=== PATIENT | male | born 1930 | race Caucasian/White ===

== ENCOUNTER 2017-04-11 16:36 | Inpatient (IN) | payer MEDICARE, OTHER ==
[2017-04-11 17:05] LABS: Glucose,Whole Blood 90 mg/dL (75-99)
--- NOTE | 2017-04-11 17:08 | ED ---
Fall HPI <Murray Sands - Last Filed: 04/11/17 18:56> - General Source: patient, EMS, RN notes reviewed Mode of arrival: EMS <Yojana Lemos - Last Filed: 04/11/17 19:40> - General Chief Complaint: Fall Stated Complaint: Fall Time Seen by Provider: 04/11/17 16:45 - History of Present Illness Initial Comments: Patient is a 87-year-old male presents to the emergency room for evaluation of fall injury. Patient's daughter is present with patient. Patient's daughter states that patient was using his walker to walk in the backyard on the cement and she turned away for one second and patient was on his back on the ground. Patient's daughter states that after the incident initially happened, he was alert and said he felt fine. Patient's daughter states that her and her moved patient onto a wheelchair and brought patient in bed. Patient's daughter states that 2 hours later patient became very altered and was not making sense while talking. Patient then began complaining of increasing pain in his left hip. Patient's daughter states that they decided to call EMS. Patient's daughter states that patient is usually not altered. Patient's daughter states that patient is on Plavix due to a stroke about 3 years ago. ( Yojana Lemos) - Related Data Home Medications Medication Instructions Recorded Confirmed ALPRAZolam [Xanax] 0.5 mg PO BID PRN 05/13/15 04/11/17 Clopidogrel [Plavix] 75 mg PO DAILY 05/13/15 04/11/17 DULoxetine HCL [Cymbalta] 60 mg PO DAILY 05/13/15 04/11/17 Hydrocodone/Acetaminophen [[place] 1 tab PO QID PRN 05/13/15 04/11/17 10-325] Montelukast [Singulair] 10 mg PO HS 05/13/15 04/11/17 Albuterol Nebulized [Ventolin 2.5 mg INHALATION RT-QID PRN 09/05/16 04/11/17 Nebulized] Oxybutynin Chloride [Ditropan XL] 5 mg PO HS 09/05/16 04/11/17 Ipratropium Nebulized [Atrovent 0.5 mg INHALATION RT-QID PRN 04/11/17 04/11/17 Nebulized] Levothyroxine Sodium [Synthroid] 100 mcg PO DAILY 04/11/17 04/11/17 Lisinopril 40 mg PO DAILY 04/11/17 04/11/17 predniSONE 10 mg PO DAILY 04/11/17 04/11/17 Previous Rx's Medication Instructions Recorded amLODIPine [Norvasc] 10 mg PO DAILY #30 tab 09/14/16 Allergies Allergy/AdvReac Type Severity Reaction Status Date / Time No Known Allergies Allergy Verified 04/11/17 17:30 Review of Systems ROS Other: All systems not noted in ROS Statement are negative. <Murray Sands - Last Filed: 04/11/17 18:56> ROS Other: All systems not noted in ROS Statement are negative. <Yojana Lemos - Last Filed: 04/11/17 19:40> ROS Statement: Those systems with pertinent positive or pertinent negative responses have been documented in the HPI. Past Medical History Past Medical History: Cancer, CVA/TIA, Hypertension, Myocardial Infarction ([place]) , Thyroid Disorder Additional Past Medical History / Comment(s): Gout; Skin Ca, uti-ecoli, bradycardia, had pne vaccine after age 63-not sure of date Last Myocardial Infarction Date:: Unknown History of Any Multi-Drug Resistant Organisms: None Reported Past Surgical History: Heart Catheterization, Orthopedic Surgery Additional Past Surgical History / Comment(s): Removal of skin ca lesions Past Anesthesia/Blood Transfusion Reactions: No Reported Reaction Past Psychological History: No Psychological Hx Reported Smoking Status: Former smoker Past Alcohol Use History: None Reported, Rare Past Drug Use History: None Reported - Past Family History Mother Family Medical History: CVA/TIA Additional Family Medical History / Comment(s): AGE 49 Father Family Medical History: No Reported History Additional Family Medical History / Comment(s): " FROM OLD AGE" <Yojana Lemos - Last Filed: 04/11/17 19:40> General Exam <Murray Sands - Last Filed: 04/11/17 18:56> Limitations: no limitations, altered mental status General appearance: alert Expanded Head exam: Present: abrasion (left pentecostal) Eye exam: Present: normal appearance, PERRL, EOMI Pupils: Present: normal accommodation Respiratory exam: Absent: respiratory distress Left Hip exam: Present: tenderness, swelling, ecchymosis (lateral hip), internal rotation, shortening. Absent: normal inspection, full ROM Neurovascular tendon exam: Present: no vascular compromise. Absent: pulse deficit (2+ dorsal pedal and posterior tibial pulses), abnormal cap refill ( capillary refill less than 2 seconds) Gait: not tested/not observed, unable to bear weight Back exam: Present: normal inspection Neurological exam: Present: alert Expanded Patient oriented to: Present: person Cranial nerves: EOM's Intact: Normal, Facial Sensation: Normal Sensory exam: Upper Extremity Light Touch: Normal, Lower Extremity Light Touch: Normal Eye Response: (3) open to voice Motor Response: (6) obeys commands Verbal Response: (4) confused conversation Psychiatric exam: Present: normal affect Skin exam: Present: warm, other (skin avulsion over left upper arm and left elbow) <Yojana Lemos - Last Filed: 04/11/17 19:40> - General Exam Comments Initial Comments: laying in exam room, c-collar on (Yojana Lemos) Medical Decision Making - Lab Data Result diagrams: 04/11/17 17:00 04/11/17 17:00 <Murray Sands - Last Filed: 04/11/17 18:56> - Lab Data Result diagrams: 04/11/17 17:00 04/11/17 17:00 - Radiology Data Radiology results: report reviewed, image reviewed <Yojana Lemos - Last Filed: 04/11/17 19:40> - Medical Decision Making Medical decision-making. The patient stumbled from his walker. Injuring his left hip with a femoral neck fracture left hip. The patient is on Plavix because of a previous CVA. Labs are done. The case discussed with Dr. Dwyer on -call orthopedic surgeon. Patient be admitted to Dr. Lawrence with aura to consult. Surgery will be for several days. Patient needs medical clearance he is currently on blood thinner. Dr. Sands (Murray Sands) - Lab Data Lab Results 04/11/17 04/11/17 04/11/17 Range/Units 17:00 17:00 17:00 WBC 17.8 H (3.8-10.6) k/uL RBC 5.18 (4.30-5.90) m/uL Hgb 16.5 (13.0-17.5) gm/dL Hct 52.0 (39.0-53.0) % MCV 100.4 H (80.0-100.0) fL MCH 31.9 (25.0-35.0) pg MCHC 31.8 (31.0-37.0) g/dL RDW 15.0 (11.5-15.5) % Plt Count 192 (150-450) k/uL Neutrophils % 83 % Lymphocytes % 10 % Monocytes % 4 % Eosinophils % 1 % Basophils % 1 % Neutrophils # 14.8 H (1.3-7.7) k/uL Lymphocytes # 1.8 (1.0-4.8) k/uL Monocytes # 0.8 (0-1.0) k/uL Eosinophils # 0.2 (0-0.7) k/uL Basophils # 0.1 (0-0.2) k/uL Macrocytosis Slight PT 10.3 (9.0-12.0) sec INR 1.0 (<1.1) Sodium 135 L (137-145) mmol/L Potassium 4.3 (3.5-5.1) mmol/L Chloride 104 (98-107) mmol/L Carbon Dioxide 21 L (22-30) mmol/L Anion Gap 10 mmol/L BUN 43 H (9-20) mg/dL Creatinine 1.64 H (0.66-1.25) mg/dL Est GFR (MDRD) Af Amer 48 (>60 ml/min/1.73 sqM) Est GFR (MDRD) Non-Af 40 (>60 ml/min/1.73 sqM) Glucose 111 H (74-99) mg/dL POC Glucose (mg/dL) (75-99) mg/dL POC Glu Metal [employer]rication Supervisor ID Calcium 9.3 (8.4-10.2) mg/dL Total Bilirubin 1.9 H (0.2-1.3) mg/dL AST 43 (17-59) U/L ALT 53 (21-72) U/L Alkaline Phosphatase 68 (38-126) U/L Ammonia (<30) umol/L Total Protein 5.9 L (6.3-8.2) g/dL Albumin 3.8 (3.5-5.0) g/dL 04/11/17 04/11/17 Range/Units 17:04 18:01 WBC (3.8-10.6) k/uL RBC (4.30-5.90) m/uL Hgb (13.0-17.5) gm/dL Hct (39.0-53.0) % MCV (80.0-100.0) fL MCH (25.0-35.0) pg MCHC (31.0-37.0) g/dL RDW (11.5-15.5) % Plt Count (150-450) k/uL Neutrophils % % Lymphocytes % % Monocytes % % Eosinophils % % Basophils % % Neutrophils # (1.3-7.7) k/uL Lymphocytes # (1.0-4.8) k/uL Monocytes # (0-1.0) k/uL Eosinophils # (0-0.7) k/uL Basophils # (0-0.2) k/uL Macrocytosis PT (9.0-12.0) sec INR (<1.1) Sodium (137-145) mmol/L Potassium (3.5-5.1) mmol/L Chloride (98-107) mmol/L Carbon Dioxide (22-30) mmol/L Anion Gap mmol/L BUN (9-20) mg/dL Creatinine (0.66-1.25) mg/dL Est GFR (MDRD) Af Amer (>60 ml/min/1.73 sqM) Est GFR (MDRD) Non-Af (>60 ml/min/1.73 sqM) Glucose (74-99) mg/dL POC Glucose (mg/dL) 90 (75-99) mg/dL POC Glu Metal Fabrication Supervisor ID Donna Thompson Calcium (8.4-10.2) mg/dL Total Bilirubin (0.2-1.3) mg/dL AST (17-59) U/L ALT (21-72) U/L Alkaline Phosphatase (38-126) U/L Ammonia <9 (<30) umol/L Total Protein (6.3-8.2) g/dL Albumin (3.5-5.0) g/dL 04/11/17 19:06 sinus rhythm with premature supraventricular complexes, ventricular rate 98 bpm , WA interval 196 ms, QRS duration 64 ms, QT/QTC 332/423 ms (Canelo,Yojana L) Disposition <Murray Sands - Last Filed: 04/11/17 18:56> Decision Date: 04/11/17 <Yojana Lemos - Last Filed: 04/11/17 19:40> Clinical Impression: Left displaced femoral neck fracture, Fall, Closed head injury Disposition: ADMITTED IP TO THIS [facility] Condition: Stable Referrals: Prakash Lawrence MD [Primary Care Provider] - 1-2 days
[2017-04-11] MEDS ORDERED: MORPHINE SULFATE 2 MG/ML SYRINGE IVP ONE (17:17)
[2017-04-11 17:19] LABS: Basophils # (A) 0.1 k/uL (0-0.2); Basophils % (A) 1 %; CH 32.9; CHCM 32.9; Eosinophils # (A) 0.2 k/uL (0-0.7); Eosinophils % (A) 1 %; HDW 2.33; HGB 16.5 gm/dL (13.0-17.5); Luc # (Auto) 0.16; Luc % (Auto) 1; Lymphocytes # (A) 1.8 k/uL (1.0-4.8); Lymphocytes % (A) 10 %; MCH 31.9 pg (25.0-35.0); MCHC 31.8 g/dL (31.0-37.0); MCV 100.4 fL (80.0-100.0); Macrocytosis Slight; Mean Platelet Volume 7.6; Monocytes # (A) 0.8 k/uL (0-1.0); Monocytes % (A) 4 %; Neutrophils # (A) 14.8 k/uL (1.3-7.7); Neutrophils % (A) 83 %; RBC 5.18 m/uL (4.30-5.90); WBC 17.8 k/uL (3.8-10.6); WBC (Perox) 17.25
[2017-04-11 17:25] LABS: Prothrombin Time 10.3 sec (9.0-12.0)
[2017-04-11 17:28] LABS: Calcium 9.3 mg/dL (8.4-10.2); Potassium 4.3 mmol/L (3.5-5.1); Total Bilirubin 1.9 mg/dL (0.2-1.3); Total Protein 5.9 g/dL (6.3-8.2)
--- NOTE | 2017-04-11 17:43 | CT ---
EXAMINATION TYPE: CT brain diaz moon con DATE OF EXAM: 04/11/2017 COMPARISON: May 13, 2015 HISTORY: Fall injury today. CT DLP: [address] of the brain was performed. The ventricles, basal cisterns and sulci overlying the cerebral convexities demonstrate moderate enla rgement. There is no evidence for intracranial hemorrhage or sulcal effacement. There is decreased attenuatio n about the periventricular white matter and deep white matter of both cerebral hemispheres, compatib le with chronic small vessel ischemia. No mass effects are seen. If symptoms persist consider MRI. Osseous calvarium is intact. IMPRESSION: 1. Age related atrophic and chronic small vessel ischemic change without acute intracranial process seen at this time. CT Cervical Spine: Unenhanced CT of the cervical spine was performed with bone and soft tissue window settings submitted . Coronal and sagittal reconstruction is obtained. There is normal alignment and prevertebral soft tissues. No evidence for acute cervical fracture . S evere Scattered degenerative disc disease and spondylosis. Reticular convex to the left. Biapical sca rring. IMPRESSION: 1. No evidence for acute fracture or subluxation of the cervical spine.
--- NOTE | 2017-04-11 18:29 | XR ---
EXAMINATION TYPE: XR Hip LT and AP Pelvis DATE OF EXAM: 04/11/2017 CLINICAL HISTORY: pain TECHNIQUE: AP and frogleg views of the left hip are obtained. Single view of the pelvis is also subm itted. COMPARISON: None. FINDINGS: There is a left femoral neck fracture with proximal migration of the distal fracture compon ent. No additional fracture seen. The joint space appears within normal limits. The overlying soft tissue appears unremarkable. IMPRESSION: 1. Left femoral neck fracture.
--- NOTE | 2017-04-11 18:30 | XR ---
EXAMINATION TYPE: XR chest 1V DATE OF EXAM: 04/11/2017 HISTORY: Shortness of breath. COMPARISON: September 13, 2016 TECHNIQUE: Single view of the chest is submitted. FINDINGS: Demonstrated are scattered senescent parenchymal change. There is no evidence for focal infiltrate. The heart is stable. Hilar and mediastinal structures are within normal limits. Degenerative changes are seen of the dorsal spine. IMPRESSION: 1. Chronic changes without evidence for acute pulmonary disease.
[2017-04-11] MEDS ORDERED: SODIUM CHLORIDE 0.9% 1,000 ML IV ONE (18:39)
[2017-04-11] MEDS ORDERED: ONDANSETRON 4 MG/2 ML VIAL IVP PRN (18:59)
[2017-04-11] MEDS ORDERED: NALOXONE 0.4 MG/ML 1 ML VIAL IV PRN (18:59)
[2017-04-11] MEDS ORDERED: HYDROcodone/APAP 10-325MG 1 EACH TAB PO PRN (19:55)
[2017-04-11] MEDS ORDERED: ALBUTEROL NEBULIZED 2.5 MG/3 ML INHALATION PRN (19:55)
[2017-04-11] MEDS ORDERED: IPRATROPIUM 0.5 MG/2.5 ML NEBU INHALATION PRN (19:55)
[2017-04-11] MEDS ORDERED: ALPRAZolam 0.5 MG TAB PO PRN (19:55)
[2017-04-11] MEDS ORDERED: amLODIPine 5 MG TAB PO STA (20:05)
[2017-04-11] MEDS: MORPHINE SULFATE 4 MG/ML SYRINGE IV PRN ×2 (20:06→23:54)
[2017-04-11 20:12] LABS: Appearance,Urine Clear (Clear); Bacteria,Urine Rare /hpf; Bilirubin,Urine Negative (Negative); Glucose,Urine (UA) Negative (Negative); Ketones,Urine Negative (Negative); Leukocyte Esterase,Urine Negative (Negative); Nitrite,Urine Negative (Negative); PH, Urine 6.5 (5.0-8.0); Particle Count 5194; Protein,Urine 2+ (Negative); RBC,Urine <1 /hpf (0-5); Specific Gravity,Urine 1.014 (1.001-1.035); UA Billing (MACRO vs. MICRO) MICRO; Urobilinogen,Urine <2.0 mg/dL (<2.0); WBC,Urine <1 /hpf (0-5)
[2017-04-11] MEDS ORDERED: cloNIDine HCL 0.1 MG TAB PO STA (22:05)
[2017-04-12] MEDS: MORPHINE SULFATE 4 MG/ML SYRINGE IV PRN ×2 (02:54→07:30)
[2017-04-12] MEDS: OXYBUTYNIN XL 5 MG TAB.ER.24 PO SCH (04:23)
[2017-04-12] MEDS: MONTELUKAST 10 MG TAB PO SCH (04:23)
[2017-04-12 06:55] LABS: Glucose,Whole Blood 149 mg/dL (75-99)
[2017-04-12] MEDS: LISINOPRIL 20 MG TAB PO SCH (07:30)
[2017-04-12] MEDS: amLODIPine 10 MG TAB PO SCH (07:31)
[2017-04-12] MEDS ORDERED: CLOPIDOGREL 75 MG TAB PO SCH (09:00)
--- NOTE | 2017-04-12 09:52 | P.CNOR ---
History of Present Illness - HPI Consult date: 04/12/17 Consult reason: fracture (Left hip subcapital fracture) History of present illness: This is an 87-year-old male who fell on the concrete yesterday, sustaining injury to his left hip. The patient has significant confusion and family is not at bedside at this time. There is a nurse at bedside who provides the history of injury. He is admitted to Dr. Lawrence with left subcapital hip fracture. We're consulted for orthopedic evaluation. Past Medical History Past Medical History: Cancer, CVA/TIA, Hypertension, Myocardial Infarction ([place]) , Thyroid Disorder Additional Past Medical History / Comment(s): Gout; Skin Ca, uti-ecoli, bradycardia, had pne vaccine after age 63-not sure of date Last Myocardial Infarction Date:: Unknown History of Any Multi-Drug Resistant Organisms: None Reported Past Surgical History: Heart Catheterization, Orthopedic Surgery Additional Past Surgical History / Comment(s): Removal of skin ca lesions Past Anesthesia/Blood Transfusion Reactions: No Reported Reaction Past Psychological History: No Psychological Hx Reported Smoking Status: Former smoker Past Alcohol Use History: None Reported, Rare Past Drug Use History: None Reported - Past Family History Mother Family Medical History: CVA/TIA Additional Family Medical History / Comment(s): AGE 49 Father Family Medical History: No Reported History Additional Family Medical History / Comment(s): " FROM OLD AGE" Medications and Allergies Home Medications Medication Instructions Recorded Confirmed Type ALPRAZolam [Xanax] 0.5 mg PO BID PRN 05/13/15 04/11/17 History Clopidogrel [Plavix] 75 mg PO DAILY 05/13/15 04/11/17 History DULoxetine HCL [Cymbalta] 60 mg PO DAILY 05/13/15 04/11/17 History Hydrocodone/Acetaminophen [[place] 1 tab PO QID PRN 05/13/15 04/11/17 History 10-325] Montelukast [Singulair] 10 mg PO HS 05/13/15 04/11/17 History Albuterol Nebulized [Ventolin 2.5 mg INHALATION RT-QID PRN 09/05/16 04/11/17 History Nebulized] Oxybutynin Chloride [Ditropan XL] 5 mg PO HS 09/05/16 04/11/17 History Ipratropium Nebulized [Atrovent 0.5 mg INHALATION RT-QID PRN 04/11/17 04/11/17 History Nebulized] Levothyroxine Sodium [Synthroid] 100 mcg PO DAILY 04/11/17 04/11/17 History Lisinopril 40 mg PO DAILY 04/11/17 04/11/17 History predniSONE 10 mg PO DAILY 04/11/17 04/11/17 History Allergies Allergy/AdvReac Type Severity Reaction Status Date / Time No Known Allergies Allergy Verified 04/11/17 17:30 Physical Examination This is a pleasantly confused 87-year-old gentleman in no acute distress. He is alert but very confused. Exam of the head neck reveal no obvious deformity. There is no pain to palpation about cervical spine or paraspinal musculature. Exam the upper extremities reveals no obvious deformities. He does have multiple skin tears with dressings in place. He can move both shoulders, elbows , wrists and fingers without obvious difficulty. Exam the lower extremities reveals no obvious deformity. There is a large contusion about the left lateral, posterior hip. He does have significant pain with motion of the left hip. Pedal pulses are nonpalpable but notable only on Doppler. Results X-ray of the pelvis and left hip reveal a displaced femoral neck fracture. - Labs Labs: Abnormal Lab Results - Last 24 Hours (Table) 04/11/17 04/11/17 04/11/17 Range/Units 17:00 17:00 19:45 WBC 17.8 H (3.8-10.6) k/uL MCV 100.4 H (80.0-100.0) fL Neutrophils # 14.8 H (1.3-7.7) k/uL Sodium 135 L (137-145) mmol/L Carbon Dioxide 21 L (22-30) mmol/L BUN 43 H (9-20) mg/dL Creatinine 1.64 H (0.66-1.25) mg/dL Glucose 111 H (74-99) mg/dL POC Glucose (mg/dL) (75-99) mg/dL Total Bilirubin 1.9 H (0.2-1.3) mg/dL Total Protein 5.9 L (6.3-8.2) g/dL Urine Protein 2+ H (Negative) Urine Bacteria Rare H (None) /hpf Urine Yeast (Budding) Occasional H (None) /hpf 06/01/17 Range/Units 06:52 WBC (3.8-10.6) k/uL MCV (80.0-100.0) fL Neutrophils # (1.3-7.7) k/uL Sodium (137-145) mmol/L Carbon Dioxide (22-30) mmol/L BUN (9-20) mg/dL Creatinine (0.66-1.25) mg/dL Glucose (74-99) mg/dL POC Glucose (mg/dL) 149 H (75-99) mg/dL Total Bilirubin (0.2-1.3) mg/dL Total Protein (6.3-8.2) g/dL Urine Protein (Negative) Urine Bacteria (None) /hpf Urine Yeast (Budding) (None) /hpf H & H 04/11/17 Range/Units 17:00 Hgb 16.5 (13.0-17.5) gm/dL Hct 52.0 (39.0-53.0) % Coagulation 04/11/17 Range/Units 17:00 INR 1.0 (<1.1) Result Diagrams: 04/11/17 17:00 04/11/17 17:00 Assessment and Plan (1) Closed head injury Status: Acute (2) Fall Status: Acute (3) Left displaced femoral neck fracture Status: Acute Plan: The clinical and x-ray findings are discussed with the patient and his nurse. It is recommended that he undergo hemiarthroplasty of the left hip. We have scheduled surgery for tomorrow. We are awaiting medical clearance. He'll most likely require inpatient rehab postoperatively.
[2017-04-12] MEDS ORDERED: MORPHINE SULFATE 2 MG/ML SYRINGE IVP PRN ×2 (09:56→15:05)
[2017-04-12 11:35] LABS: Glucose,Whole Blood 111 mg/dL (75-99)
[2017-04-12] MEDS ORDERED: hydrALAZINE HCL 20 MG/ML 1 ML VIAL IVP PRN (12:01)
--- NOTE | 2017-04-12 14:06 | CT ---
EXAMINATION TYPE: CT brain wo con DATE OF EXAM: 04/12/2017 COMPARISON: Previous study dated 04/11/2017 HISTORY: increased confusion CT DLP: 995.5 mGycm Automated exposure control for dose reduction was used. FINDINGS: There are generalized changes of sulcal prominence and ventriculomegaly, compatible with atrophic alden nge. There is diffuse periventricular white matter lucency, compatible with chronic white matter isch emic change. There is evidence of a previous right thalamic infarct. There is evidence of an old lacu ne in the external capsule on the left. There is no mass effect, midline shift or intracranial blood. Visualized portions of the paranasal sinuses and mastoids are clear. IMPRESSION: 1. NO ACUTE INTRACRANIAL ABNORMALITY. 2. 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 3. ATROPHIC CHANGE. 4. CHRONIC WHITE MATTER ISCHEMIC CHANGE.
[2017-04-12] MEDS: SODIUM CHLORIDE 0.9% 1,000 ML IV SCH ×3 (14:29→19:06)
[2017-04-12] MEDS: FAMOTIDINE 20 MG/2 ML VIAL IV SCH (14:30)
[2017-04-12] MEDS: DULoxetine HCL 60 MG CAPSULE.DR PO SCH (14:30)
[2017-04-12] MEDS: LEVOTHYROXINE 100 MCG TAB PO SCH (14:30)
--- NOTE | 2017-04-12 15:04 | P.HPIM ---
History of Present Illness H&P Date: 04/12/17 87-year-old male presented on the day of admission to the emergency room via the EMS system after patient reportedly had fallen. Patient currently is being seen at the bedside is confused and disoriented no family at bedside. Patient does not follow simple commands Reviewing the emergency room record indicated that the patient on April 11 was brought in via the EMS system after the daughter noted the patient had fallen. Reviewing the records indicate the patient was using his walker in the backyard on cement daughter turned away for second and the patient was on his back on the ground the daughter reported the incident initially happened where the patient was alert and said he was fine. According to the daughter 2 hours later the patient became very agitated was making no sense when talking and was complaining of increased pain in his left hip. Given the above clinical presentation the decision was made to call the EMS. His was brought into the emergency room with above-mentioned symptoms. Patient has history of a prior CVA and has been on Plavix. A repeat CAT scan on April 12 for increased confusion showed no acute intracranial abnormality. It did show chronic white matter ischemic change. Old lacunar infarct. X-rays in the emergency room of the left hip did show a displaced femoral neck fracture. Additionally patient had x-rays of the cervical spine which showed no evidence of an acute fracture or subluxation. 12-lead EKG showed sinus rhythm Review of Systems Not able to adequately obtain patient has no recall Past Medical History Past Medical History: Cancer, CVA/TIA, Hypertension, Myocardial Infarction ([place]) , Thyroid Disorder Additional Past Medical History / Comment(s): Gout; Skin Ca, uti-ecoli, bradycardia, had pne vaccine after age 63-not sure of date Last Myocardial Infarction Date:: Unknown History of Any Multi-Drug Resistant Organisms: None Reported Past Surgical History: Heart Catheterization, Orthopedic Surgery Additional Past Surgical History / Comment(s): Removal of skin ca lesions Past Anesthesia/Blood Transfusion Reactions: No Reported Reaction Past Psychological History: No Psychological Hx Reported Smoking Status: Former smoker Past Alcohol Use History: None Reported, Rare Past Drug Use History: None Reported - Past Family History Mother Family Medical History: CVA/TIA Additional Family Medical History / Comment(s): AGE 49 Father Family Medical History: No Reported History Additional Family Medical History / Comment(s): " FROM OLD AGE" Medications and Allergies Home Medications Medication Instructions Recorded Confirmed Type ALPRAZolam [Xanax] 0.5 mg PO BID PRN 05/13/15 04/11/17 History Clopidogrel [Plavix] 75 mg PO DAILY 05/13/15 04/11/17 History DULoxetine HCL [Cymbalta] 60 mg PO DAILY 05/13/15 04/11/17 History Hydrocodone/Acetaminophen [[place] 1 tab PO QID PRN 05/13/15 04/11/17 History 10-325] Montelukast [Singulair] 10 mg PO HS 05/13/15 04/11/17 History Albuterol Nebulized [Ventolin 2.5 mg INHALATION RT-QID PRN 09/05/16 04/11/17 History Nebulized] Oxybutynin Chloride [Ditropan XL] 5 mg PO HS 09/05/16 04/11/17 History Ipratropium Nebulized [Atrovent 0.5 mg INHALATION RT-QID PRN 04/11/17 04/11/17 History Nebulized] Levothyroxine Sodium [Synthroid] 100 mcg PO DAILY 04/11/17 04/11/17 History Lisinopril 40 mg PO DAILY 04/11/17 04/11/17 History predniSONE 10 mg PO DAILY 04/11/17 04/11/17 History Allergies Allergy/AdvReac Type Severity Reaction Status Date / Time No Known Allergies Allergy Verified 04/11/17 17:30 Physical Exam Vitals: Vital Signs Temp Pulse Pulse Pulse Resp BP BP 04/12/17 14:09 98.6 F 83 16 158/97 04/12/17 08:33 100 16 142/84 04/12/17 08:00 94 04/12/17 07:00 97.6 F 103 H 18 160/106 04/11/17 23:50 97.7 F 105 H 16 143/69 04/11/17 23:25 108 H 18 159/101 04/11/17 22:46 93 16 167/105 04/11/17 21:08 82 16 161/109 04/11/17 19:57 73 16 194/109 04/11/17 17:34 98 18 159/102 04/11/17 16:45 91 20 175/104 Pulse Ox 04/12/17 14:09 99 04/12/17 08:33 93 L 04/12/17 08:00 04/12/17 07:00 97 04/11/17 23:50 94 L 04/11/17 23:25 94 L 04/11/17 22:46 93 L 04/11/17 21:08 93 L 04/11/17 19:57 04/11/17 17:34 95 04/11/17 16:45 93 L Intake and Output 04/11/17 04/12/17 04/12/17 22:59 06:59 14:59 Intake Total 700 Output Total 200 Balance 500 Intake: Intake, IV Titration 700 Amount Sodium Chloride 0.9% 1, 700 000 ml @ 100 mls/hr IV . Q10H [facility] Rx#:[id number] Output: Urine 200 Other: Voiding Method Indwelling Catheter Indwelling Catheter Weight 77.111 kg 72 kg Patient Weight 04/13/17 06:59 Weight 72 kg GENERAL APPEARANCE: 87-year-old male patient is awake babbling asking for honey stating repeatedly I love you" oriented to self only does not follow simple commands does not make eye contact VITAL SIGNS: Reviewed HEENT: Head is normocephalic and atraumatic. Pupils are equal and reactive. The nares are patent. Oropharynx is clear without lesions. NECK: Supple without lymphadenopathy. Traches midline. HEART: S1, S2. Regular rate and rhythm. No murmur noted LUNGS: No crackles or wheezes are heard. Diminished at the bases ABDOMEN: Soft, nontender, nondistended with good bowel sounds. No peritoneal signs. No palpable organomegaly or masses. Indwelling Yee catheter in place EXTREMITIES: There are multiple purple ecchymotic bruising noted the right knee yellow purple bruising noted bilateral scapulary bruised purple There is a skin tear noted to the right upper chest wall. The right upper chest wall is ecchymotic purple bruising. There is purple bruising noted to the right upper arm as well. The bilateral right knee purple ecchymotic in the left leg purple ecchymotic. Bilateral upper and lower extremities are cool to touch. Not able to palpate a peripheral pulses. Patient is noted to have multiple scattered skin tears with multiple scattered purple ecchymotic bruising noted Results CBC & Chem 7: 04/11/17 17:00 04/11/17 17:00 Labs: Abnormal Lab Results - Last 24 Hours (Table) 05/31/17 05/31/17 05/31/17 Range/Units 17:00 17:00 19:45 WBC 17.8 H (3.8-10.6) k/uL MCV 100.4 H (80.0-100.0) fL Neutrophils # 14.8 H (1.3-7.7) k/uL Sodium 135 L (137-145) mmol/L Carbon Dioxide 21 L (22-30) mmol/L BUN 43 H (9-20) mg/dL Creatinine 1.64 H (0.66-1.25) mg/dL Glucose 111 H (74-99) mg/dL POC Glucose (mg/dL) (75-99) mg/dL Total Bilirubin 1.9 H (0.2-1.3) mg/dL Total Protein 5.9 L (6.3-8.2) g/dL Urine Protein 2+ H (Negative) Urine Bacteria Rare H (None) /hpf Urine Yeast (Budding) Occasional H (None) /hpf 04/12/17 04/12/17 Range/Units 06:52 11:32 WBC (3.8-10.6) k/uL MCV (80.0-100.0) fL Neutrophils # (1.3-7.7) k/uL Sodium (137-145) mmol/L Carbon Dioxide (22-30) mmol/L BUN (9-20) mg/dL Creatinine (0.66-1.25) mg/dL Glucose (74-99) mg/dL POC Glucose (mg/dL) 149 H 111 H (75-99) mg/dL Total Bilirubin (0.2-1.3) mg/dL Total Protein (6.3-8.2) g/dL Urine Protein (Negative) Urine Bacteria (None) /hpf Urine Yeast (Budding) (None) /hpf Assessment and Plan Plan: Impression Fall from a standing position resulting in left hip pain suspect due to a left displaced femoral neck fracture Present on admission multiple purple ecchymotic bruising noted Present on admission acute encephalopathy different from baseline Present on admission leukocytosis suspect reactive Present on admission acute renal failure suspect due to clinical dehydration poor oral intake Hypothyroidism on supplements Hypertension with hypertensive heart disease with LVH per echocardiogram done on August 2016 Left ventricular systolic function normal with an EF between 55 and 60 per echocardiogram August 2016 dementia suspect progressive Plan Neurochecks per protocol as ordered Resume home meds as appropriate Consult neurology Dr. Rodriguez IV hydration Repeat labs in the morning DVT and GI prophylaxis Further recommendations pending Suspect patient will need subacute rehab when medically stable The above dictated assessment and findings were discussed with dr ramirez Impression and the plan of care have been dictated as directed. Sarah Hyman nurse practitioner acting as a scribe for dr ramirez
[2017-04-12] MEDS: IPRATROPIUM-ALBUTEROL 3 ML NEB INHALATION SCH ×2 (15:43→20:57)
[2017-04-12 16:26] LABS: Glucose,Whole Blood 79 mg/dL (75-99)
--- NOTE | 2017-04-12 21:18 | P.CNNES ---
History of Present Illness Consult date: 04/12/17 History of Present Illness: The patient is an 87-year-old man who reportedly fell yesterday patient was walking in his backyard with his walker and his daughter saw him fall backwards on concrete. After a few hours the patient did become agitated and complained of left hip pain. As was called and he was brought to the emergency room. He had a CAT scan of the brain in the emergency room which did not show any acute abnormality. X-ray did show left hip displaced fracture of the neck of the femur. He was admitted to the hospital with left displaced fracture neck of femur he also had closed head injury. He has a history of old little lacunar infarct as seen on CT. Neurology is requested to see the patient today for altered mental status. Review of Systems ROS unobtainable: due to mental status Past Medical History Past Medical History: Cancer, CVA/TIA, Hypertension, Myocardial Infarction ([place]) , Thyroid Disorder Additional Past Medical History / Comment(s): Gout; Skin Ca, uti-ecoli, bradycardia, had pne vaccine after age 63-not sure of date Last Myocardial Infarction Date:: 2013 History of Any Multi-Drug Resistant Organisms: None Reported Past Surgical History: Orthopedic Surgery Additional Past Surgical History / Comment(s): Removal of skin ca lesions. FAMILY UNSURE IF PATIENT HAD HEART CATHERIZATION Past Anesthesia/Blood Transfusion Reactions: No Reported Reaction Past Psychological History: Anxiety Smoking Status: Former smoker Past Alcohol Use History: None Reported, Rare Past Drug Use History: None Reported - Past Family History Mother Family Medical History: COPD, CVA/TIA Additional Family Medical History / Comment(s): AGE 49 Father Family Medical History: No Reported History Additional Family Medical History / Comment(s): " FROM OLD AGE" Medications and Allergies Home Medications Medication Instructions Recorded Confirmed Type ALPRAZolam [Xanax] 0.5 mg PO BID PRN 05/13/15 04/11/17 History Clopidogrel [Plavix] 75 mg PO DAILY 05/13/15 04/11/17 History DULoxetine HCL [Cymbalta] 60 mg PO DAILY 05/13/15 04/11/17 History Hydrocodone/Acetaminophen [[place] 1 tab PO QID PRN 05/13/15 04/11/17 History 10-325] Montelukast [Singulair] 10 mg PO HS 05/13/15 04/11/17 History Albuterol Nebulized [Ventolin 2.5 mg INHALATION RT-QID PRN 09/05/16 04/11/17 History Nebulized] Oxybutynin Chloride [Ditropan XL] 5 mg PO HS 09/05/16 04/11/17 History Ipratropium Nebulized [Atrovent 0.5 mg INHALATION RT-QID PRN 04/11/17 04/11/17 History Nebulized] Levothyroxine Sodium [Synthroid] 100 mcg PO DAILY 04/11/17 04/11/17 History Lisinopril 40 mg PO DAILY 04/11/17 04/11/17 History predniSONE 10 mg PO DAILY 04/11/17 04/11/17 History Allergies Allergy/AdvReac Type Severity Reaction Status Date / Time No Known Allergies Allergy Verified 04/11/17 17:30 Physical Examination - Vital Signs Vital Signs: Vital Signs Temp Pulse Pulse Pulse Resp BP BP 04/12/17 20:58 84 04/12/17 15:51 84 04/12/17 15:43 84 04/12/17 14:09 98.6 F 83 16 158/97 04/12/17 08:33 100 16 142/84 04/12/17 08:00 94 04/12/17 07:00 97.6 F 103 H 18 160/106 04/11/17 23:50 97.7 F 105 H 16 143/69 04/11/17 23:25 108 H 18 159/101 04/11/17 22:46 93 16 167/105 04/11/17 21:08 82 16 161/109 Pulse Ox 04/12/17 20:58 04/12/17 15:51 04/12/17 15:43 04/12/17 14:09 99 04/12/17 08:33 93 L 04/12/17 08:00 04/12/17 07:00 97 04/11/17 23:50 94 L 04/11/17 23:25 94 L 04/11/17 22:46 93 L 04/11/17 21:08 93 L Intake and Output 04/12/17 04/12/17 04/12/17 06:59 14:59 22:59 Intake Total 700 800 Output Total 200 Balance 500 800 Intake: Intake, IV Titration 700 800 Amount Sodium Chloride 0.9% 1, 700 800 000 ml @ 100 mls/hr IV . Q10H [facility] Rx#:[id number] Output: Urine 200 Other: Voiding Method Indwelling Catheter Indwelling Catheter Indwelling Catheter Weight 72 kg 72 kg Patient Weight 04/13/17 06:59 Weight 72 kg - Constitutional General appearance: average body habitus - EENT EENT: hearing diminished - Respiratory Respiratory: lungs clear - Cardiovascular Cardiovascular: regular rate - Neurologic Mental status the patient was awake he was oriented to person he followed simple commands he was very hard of hearing he was able to repeat he was able to count to 10 he had some general confusion he did not know the year he was disoriented to see his situation and place there was no a aphasia Cranial nerve examination: face symmetric Speech examination: intact Detailed motor examination: other (The patient had good strength in both upper extremities) Results - Laboratory Findings CBC and BMP: 04/11/17 17:00 04/11/17 17:00 Abnormal Lab Findings: Abnormal Labs 04/11/17 04/11/17 04/11/17 17:00 17:00 19:45 WBC 17.8 H MCV 100.4 H Neutrophils # 14.8 H Sodium 135 L Carbon Dioxide 21 L BUN 43 H Creatinine 1.64 H Glucose 111 H POC Glucose (mg/dL) Total Bilirubin 1.9 H Total Protein 5.9 L Urine Protein 2+ H Urine Bacteria Rare H Urine Yeast (Budding) Occasional H 04/12/17 04/12/17 06:52 11:32 WBC MCV Neutrophils # Sodium Carbon Dioxide BUN Creatinine Glucose POC Glucose (mg/dL) 149 H 111 H Total Bilirubin Total Protein Urine Protein Urine Bacteria Urine Yeast (Budding) Assessment and Plan (1) Left displaced femoral neck fracture Status: Acute Code(s): S72.002A - FRACTURE OF UNSP PART OF NECK OF LEFT FEMUR , INIT (2) Closed head injury Status: Acute Code(s): S09.90XA - UNSPECIFIED INJURY OF HEAD, INITIAL ENCOUNTER (3) ARF (acute renal failure) Status: Acute Code(s): N17.9 - ACUTE KIDNEY FAILURE, UNSPECIFIED (4) Bradycardia Status: Acute Code(s): R00.1 - BRADYCARDIA, UNSPECIFIED Plan: The patient is an 87-year-old man who suffered a fall yesterday with subsequent fracture of his femoral neck and closed head injury. He has been having some confusion and a follow-up CT was done and this was unchanged compared to CT done on admission. There was evidence of an old lacunar infarct in the left thalamus. There was no intracranial bleed. Patient's confusion is likely secondary to underlying encephalopathy. Patient also has acute renal failure and leukocytosis. He has a history of dementia which may have worsened or exacerbated. Will check EEG.
[2017-04-12 21:21] LABS: Glucose,Whole Blood 91 mg/dL (75-99)
[2017-04-13] MEDS: OXYBUTYNIN XL 5 MG TAB.ER.24 PO SCH ×2 (00:51→20:46)
[2017-04-13] MEDS: MONTELUKAST 10 MG TAB PO SCH ×2 (00:51→20:46)
[2017-04-13] MEDS: IPRATROPIUM-ALBUTEROL 3 ML NEB INHALATION SCH ×7 (02:26→23:49)
[2017-04-13] MEDS: LEVOTHYROXINE 100 MCG TAB PO SCH (05:52)
[2017-04-13 07:22] LABS: Glucose,Whole Blood 93 mg/dL (75-99)
[2017-04-13 07:53] LABS: ALT 41 U/L (21-72); AST 35 U/L (17-59); Alkaline Phosphatase 45 U/L (38-126); Anion Gap 5 mmol/L; Blood Urea Nitrogen 42 mg/dL (9-20); Calcium 8.4 mg/dL (8.4-10.2); Carbon Dioxide 20 mmol/L (22-30); Chloride 112 mmol/L (98-107); Glucose 92 mg/dL (74-99); Non-African American GFR(MDRD) 50 (>60 ml/min/1.73 sqM); Sodium 137 mmol/L (137-145); Total Bilirubin 1.7 mg/dL (0.2-1.3); Total Protein 4.9 g/dL (6.3-8.2)
[2017-04-13 08:06] LABS: Basophils % (A) 0 %; CH 32.7; CHCM 32.3; Eosinophils # (A) 0.1 k/uL (0-0.7); Eosinophils % (A) 1 %; HDW 2.37; Luc # (Auto) 0.09; Luc % (Auto) 1; Lymphocytes # (A) 1.2 k/uL (1.0-4.8); Lymphocytes % (A) 11 %; MCH 33.3 pg (25.0-35.0); MCHC 32.6 g/dL (31.0-37.0); MCV 101.9 fL (80.0-100.0); Macrocytosis Slight; Mean Platelet Volume 7.9; Monocytes # (A) 0.5 k/uL (0-1.0); Monocytes % (A) 5 %; Neutrophils # (A) 9.3 k/uL (1.3-7.7); Neutrophils % (A) 83 %; RBC 4.02 m/uL (4.30-5.90); RDW 14.6 % (11.5-15.5); WBC 11.3 k/uL (3.8-10.6); WBC (Perox) 11.27
[2017-04-13 08:07] LABS: HGB 13.4 gm/dL (13.0-17.5)
[2017-04-13 08:25] LABS: Potassium 4.2 mmol/L (3.5-5.1)
[2017-04-13] MEDS: LISINOPRIL 20 MG TAB PO SCH (09:48)
[2017-04-13] MEDS: FAMOTIDINE 20 MG/2 ML VIAL IV SCH (09:48)
--- NOTE | 2017-04-13 10:37 | P.PN ---
Subjective Principal diagnosis: Fall with hip fracture Patient seen and examined covering for Dr. Lawrence with family and nursing at bedside. The patient is confused but does know he is in the hospital. The plan is for surgery today with orthopedics. The family is aware that he is higher risk due to his advanced age. Objective - Vital Signs Vital signs: Vital Signs Temp 98.4 F 04/13/17 07:00 Pulse 88 04/13/17 08:12 Resp 16 04/13/17 08:03 BP 159/89 04/13/17 07:00 Pulse Ox 95 04/13/17 07:00 Intake & Output 04/12/17 04/13/17 04/13/17 18:59 06:59 18:59 Intake Total 800 1200 Output Total 400 Balance 800 800 Weight 72 kg Intake: Intake, IV Titration 800 1200 Amount Sodium Chloride 0.9% 1, 800 1200 000 ml @ 100 mls/hr IV . Q10H [facility] Rx#:[id number] Output: Urine 400 Other: Voiding Method Indwelling Catheter Indwelling Catheter Indwelling Catheter - Exam GENERAL APPEARANCE: 87-year-old male patient is awake, oriented to place only VITAL SIGNS: Reviewed HEENT: Head is normocephalic and atraumatic. Pupils are equal and reactive. The nares are patent. Oropharynx is clear without lesions. NECK: Supple without lymphadenopathy. Traches midline. HEART: S1, S2. Regular rate and rhythm. No murmur noted LUNGS: No crackles or wheezes are heard. Diminished at the bases ABDOMEN: Soft, nontender, nondistended with good bowel sounds. No peritoneal signs. No palpable organomegaly or masses. Indwelling Yee catheter in place EXTREMITIES: There are multiple purple ecchymotic bruising noted the right knee yellow purple bruising noted bilateral scapulary bruised purple There is a skin tear noted to the right upper chest wall. The right upper chest wall is ecchymotic purple bruising. There is purple bruising noted to the right upper arm as well. The bilateral right knee purple ecchymotic in the left leg purple ecchymotic. Bilateral upper and lower extremities are cool to touch. Not able to palpate a peripheral pulses. Patient is noted to have multiple scattered skin tears with multiple scattered purple ecchymotic bruising noted - Labs CBC & Chem 7: 04/13/17 07:14 04/13/17 07:14 Labs: Abnormal Lab Results - Last 24 Hours (Table) 04/12/17 04/13/17 04/13/17 Range/Units 11:32 07:14 07:14 WBC 11.3 H (3.8-10.6) k/uL RBC 4.02 L (4.30-5.90) m/uL MCV 101.9 H (80.0-100.0) fL Plt Count 117 L (150-450) k/uL Neutrophils # 9.3 H (1.3-7.7) k/uL Chloride 112 H (98-107) mmol/L Carbon Dioxide 20 L (22-30) mmol/L BUN 42 H (9-20) mg/dL Creatinine 1.35 H (0.66-1.25) mg/dL POC Glucose (mg/dL) 111 H (75-99) mg/dL Total Bilirubin 1.7 H (0.2-1.3) mg/dL Total Protein 4.9 L (6.3-8.2) g/dL Albumin 2.8 L (3.5-5.0) g/dL TSH 6.310 H (0.465-4.680) mIU/L Assessment and Plan Plan: Fall from a standing position resulting in left hip pain suspect due to a left displaced femoral neck fracture Present on admission multiple purple ecchymotic bruising noted Present on admission acute encephalopathy different from baseline Present on admission leukocytosis suspect reactive Present on admission acute renal failure suspect due to clinical dehydration poor oral intake Hypothyroidism on supplementation Hypertension with hypertensive heart disease with LVH per echocardiogram done on August 2016 Left ventricular systolic function normal with an EF between 55 and 60 per echocardiogram August 2016 dementia suspect progressive Plan Neurochecks per protocol as ordered Resume home meds as appropriate neurology Dr. Michael sorto appreciated IV hydration Repeat labs in the morning DVT and GI prophylaxis Further recommendations pending Suspect patient will need subacute rehab when medically stable Patient is medically cleared for surgery. The family is aware that he is higher risk due to his advaced age, dementia, and medical comorbidities.
[2017-04-13] MEDS ORDERED: IV FLUID CONTINUATION 600 ML IV ONE (10:50)
[2017-04-13] MEDS ORDERED: DEXAMETHASONE SOD PHOSPHATE 10 MG/ML 1 ML VIAL IV ONE (11:29)
[2017-04-13] MEDS ORDERED: HYDROCORTISONE SUCCINATE 100 MG/2 ML VIAL IV ONE (11:29)
[2017-04-13] MEDS ORDERED: hydrALAZINE HCL 20 MG/ML 1 ML VIAL ONE (11:38)
[2017-04-13] MEDS ORDERED: SODIUM CHLORIDE 0.9% 50 ML with ceFAZolin 2,000 MG IV ONE ×2 (11:38)
[2017-04-13] MEDS ORDERED: PROPOFOL 10 MG/ML 20 ML VIAL IV ONE (11:38)
[2017-04-13] MEDS ORDERED: GLYCOPYRROLATE 0.2 MG/ML 2 ML VIAL ONE (11:38)
[2017-04-13] MEDS ORDERED: ePHEDrine 50 MG/ML 1 ML AMP ONE (11:38)
[2017-04-13] MEDS ORDERED: SUCCINYLCHOLINE CHLORIDE 100 MG/5 ML SYR IV ONE (11:38)
[2017-04-13] MEDS ORDERED: LIDOCAINE 1% INJ 10MG/ML (20 ML MDV) ONE (11:38)
[2017-04-13] MEDS ORDERED: NEOSTIGMINE 1 MG/ML 10 ML VIAL ONE (11:38)
[2017-04-13] MEDS ORDERED: ROCURONIUM BROMIDE 10 MG/ML 10 ML VIAL IV ONE (11:38)
[2017-04-13] MEDS ORDERED: fentaNYL (PF) 50 MCG/ML 2 ML AMP ONE (11:38)
[2017-04-13] MEDS ORDERED: ceFAZolin 3,000 MG in SODIUM CHLORIDE 0.9% IRRIGATIO 3,000 ML IRRIGATION ONE (12:02)
[2017-04-13] MEDS ORDERED: LACTATED RINGERS 1,000 ML IV ONE (13:08)
[2017-04-13] MEDS ORDERED: NALOXONE 0.4 MG/ML 1 ML VIAL IV PRN (14:11)
[2017-04-13] MEDS ORDERED: MAGNESIUM HYDROXIDE 2,400 MG/10 ML CUP PO PRN (14:11)
[2017-04-13] MEDS ORDERED: hydrOXYzine PAMOATE 25 MG CAP PO PRN (14:11)
[2017-04-13] MEDS ORDERED: HYDROmorphone 1 MG/ML 1 ML SYRINGE IVP PRN ×3 (14:11)
[2017-04-13] MEDS ORDERED: HYDROcodone/APAP 5-325MG 1 EACH TAB PO PRN (14:11)
--- NOTE | 2017-04-13 14:38 | XR ---
EXAMINATION TYPE: XR Hip Limited LT DATE OF EXAM ORDERED: 04/13/2017 HISTORY: Left hip arthroplasty. COMPARISON: None. FINDINGS: A left arthroplasty has been performed. Prosthetic elements appear in good position. There is some subcutaneous air present. IMPRESSION: STATUS POST LEFT ARTHROPLASTY.
[2017-04-13 15:03] LABS: Glucose,Whole Blood 122 mg/dL (75-99)
[2017-04-13 15:15] LABS: Basophils # (A) 0.1 k/uL (0-0.2); Basophils % (A) 0 %; CH 32.7; CHCM 31.9; Eosinophils # (A) 0.1 k/uL (0-0.7); Eosinophils % (A) 0 %; HCT 41.4 % (39.0-53.0); HGB 13.2 gm/dL (13.0-17.5); Luc # (Auto) 0.07; Luc % (Auto) 0; Lymphocytes # (A) 0.5 k/uL (1.0-4.8); Lymphocytes % (A) 2 %; MCH 32.7 pg (25.0-35.0); MCHC 31.8 g/dL (31.0-37.0); Macrocytosis Slight; Mean Platelet Volume 7.4; Monocytes # (A) 0.5 k/uL (0-1.0); Monocytes % (A) 2 %; Neutrophils # (A) 20.7 k/uL (1.3-7.7); Neutrophils % (A) 95 %; RBC 4.02 m/uL (4.30-5.90); RDW 14.7 % (11.5-15.5); WBC 21.8 k/uL (3.8-10.6); WBC (Perox) 22.58
[2017-04-13 16:16] LABS: Glucose,Whole Blood 104 mg/dL (75-99)
--- NOTE | 2017-04-13 17:41 | P.OP ---
Date of Procedure: 04/13/17 Preoperative Diagnosis: Postoperative Diagnosis: Procedure(s) Performed: PREOPERATIVE DIAGNOSIS: 1.Left hip femoral neck fracture 2.Subcutaneous hematoma, left buttock POSTOPERATIVE DIAGNOSIS: 1.Left hip femoral neck fracture 2.subcutaneous hematoma, left buttock OPERATION: 1.Left hip cemented unipolar hemiarthroplasty. 2.evacuation of subcutaneous hematoma, left buttock ANESTHESIA: Gen. ESTIMATED BLOOD LOSS: 100ml. MEDICAL AUTHORIZATION SPECIALIST: Radha Limon PA-C (assistance with: patient positioning, retraction, exposure, hemostasis, leg positioning, implantation, irrigation, closure, dressing) COMPLICATIONS: None apparent. COMPONENTS IMPLANTED: Anderson LDFx cemented femoral stem; unipolar femoral head; neck extension augments as needed. INDICATIONS: Mr. Mcneil is an 87-year-old male with a history of falling and sustaining a left femoral neck fracture. during the fall, he came down on his left buttock region and has a medium-size hematoma there secondary to his use of Plavix. I have recommended surgical treatment with a cemented unipolar hemiarthroplasty and removal of the hematoma. I have discussed this procedure in detail and explained the potential risks and complications as being inclusive of, but not limited to: Bleeding, infection, scarring, discomfort, blood vessel and/or nerve damage, limb length inequality, gait disturbance, blood clot, pulmonary embolism, , and other risks. The consent form has been signed. PROCEDURE: After appropriate consent was obtained, the patient was taken to the operating room and placed in supine position. Gen. anesthetic was administered and after confirmation of adequate anesthesia, the patient was placed into the lateral decubitus position with the affected side up. Care was taken to make sure that all pressure points were adequately padded and a [place] hip positioner was utilized for positioning. The hip was prepped and draped in the usual aseptic fashion using a combination of Chloraprep and alcohol. [place] drape was used for the case and the patient received intravenous antibiotics prior to the incision. The incision was created directly over the greater trochanter and carried slightly posteriorly for a posterior approach to the hip. The incision was then deepened down to subcutaneous tissue and fascia shilpa.subcutaneous hematoma was noted in the posterior aspect of the wound and was also noted that there was disc engagement of the deep subcutaneous fat to the fascia, consistent with a Elizabeth Loni lesion. Hematoma was evacuated using manual pressure and space was closed using 2-0 Vicryl suture to reattach the deep fat layer to the fascia. Fascia shilpa was split in line with the incision and split proximally along the fibers of the gluteus annelise. The underlying fibers of the muscle were teased apart using finger dissection and bleeding vessels were picked up and coagulated. Retractor was then placed posteriorly consisting of a blunt Napoleon. The short external rotators and capsule were exposed and good visualization of the attachment of the external rotators to the femur was established. The short external rotators and capsule were released using electrocautery from their femoral attachments. A hockey stick shaped incision was created in the capsule. Joint fluid and hemarthrosis was evacuated and the patient's hip was internally rotated to expose the fracture site. The femoral neck cut was created approximately 1 cm superior to the lesser trochanter using a reciprocating saw. The femoral head and neck fragment was removed and visualization and palpation of the acetabular vault showed intact hyaline cartilage with no bone exposure or significant degeneration. Attention was then directed back to the proximal femur. Retractors were placed around the proximal femur and box osteotome was used followed by canal finder and trochanteric reamer. Cylindrical reaming was performed. Progressive broaching was then performed starting with a #10 broach and progressing final size, in a position of 10-15 degrees anteversion. [place] anteversion was within 5 degrees of stem position. The final size broach had excellent fit and fill of the patient's metaphysis and diaphysis. Calcar planing was performed. Trial reduction was then performed starting with appropriately sized femoral head and various neck extensions to evaluate stability, limb length equality, and soft tissue tension. Once these parameters were satisfactory, the corresponding final components were then called for. Trial components were removed. The femoral canal was sized for the centralizer and cement plug. Once the cement plug had been inserted distal to the planned length of the femoral component, the canal was pulse lavaged and brushed to remove any unstable bone. It was then dried with a lap sponge. Cement was mixed under vacuum conditions to decrease porosity and inserted into a cement gun. Distal centralizer was placed onto the femoral component with a bit of cement. The cement was allowed to reach a slightly doughy consistency and then the canal was filled retrograde with the cement gun. Thumb pressurization was performed three times. The femoral component was then inserted with the previously determined degree of anteversion. Excess cement was removed before it hardened completely. The femoral head was then impacted onto the Rees taper. Blood and debris were removed from the acetabular socket and the hip was then reduced and checked for stability, limb length and soft tissue tension. These parameters were found to be satisfactory; the wound was then thoroughly irrigated with normal saline. Final hemostasis was obtained using electrocautery and aqua Mantis device. Closure of the capsule was performed meticulously using #3 Vicryl suture. Four [id number] sutures were placed in the posterior capsule along with repair of the external rotators. The fascia shipla was then repaired using combination of #3 Vicryl suture in interrupted fashion and Quill and running fashion. 2-0 Vicryl suture was used for the subcutaneous tissues and 3-0 Quill for the skin. Dermabond or Steri-Strips were then applied. The patient tolerated the procedure well. There were no complications and the wound bed was dry and there was no need for drain placement. Sterile dressing was then applied and the patient was carefully removed from the operating room table, placed on the stretcher and was taken to the recovery room in stable condition. Sponge and needle counts were correct. Implants: Indications for Procedure: Operative Findings: Description of Procedure:
[2017-04-13] MEDS: DULoxetine HCL 60 MG CAPSULE.DR PO SCH (20:09)
[2017-04-13] MEDS: ceFAZolin 2 GM in SODIUM CHLORIDE 0.9% 100 ML IVPB SCH (20:11)
[2017-04-13] MEDS: SENNOSIDES-DOCUSATE SODIUM 1 EACH TAB PO SCH (20:46)
[2017-04-13] MEDS: LACTATED RINGERS 1,000 ML IV SCH (20:47)
[2017-04-13] MEDS ORDERED: TEMAZEPAM 15 MG CAP PO PRN (22:00)
[2017-04-14] MEDS: HYDROcodone/APAP 5-325MG 1 EACH TAB PO PRN ×2 (00:23→09:53)
[2017-04-14] MEDS: IPRATROPIUM-ALBUTEROL 3 ML NEB INHALATION SCH ×5 (03:37→19:45)
[2017-04-14] MEDS: ceFAZolin 2 GM in SODIUM CHLORIDE 0.9% 100 ML IVPB SCH (04:20)
[2017-04-14] MEDS: SODIUM CHLORIDE 0.9% 1,000 ML IV SCH ×4 (04:21→10:37)
[2017-04-14] MEDS: LEVOTHYROXINE 100 MCG TAB PO SCH (06:25)
[2017-04-14 07:04] LABS: Glucose,Whole Blood 122 mg/dL (75-99)
--- NOTE | 2017-04-14 08:41 | EEG ---
DATE OF SERVICE: 04/13/2017 INDICATIONS FOR EXAMINATION: This patient is an 87 -year-old male who suffered closed head injury and a fracture of the left femur. The patient being evaluated for altered mentation. AGE: 87Y EEG FINDINGS: A routine 21 channel awake digital EEG recording was accomplished utilizing the 10-20 international system with bipolar and referential montages. The background activity in the most alert resting state consists of a low to medium amplitude, fairly well developed and well sustained 7-8 Hz activity over the posterior head regions. This posterior rhythm attenuates to eye opening. There is a small amount of low amplitude 18-20Hz beta activity seen maximally over the anterior head regions. Muscle and movement artifact was observed on several occasions during the tracing. Hyperventilation was not performed. Photic stimulation at flash frequencies of 2-30 Hz produced a minimal occipital driving response. No epileptiform discharges were seen. IMPRESSION: This EEG is within normal limits for the patient's age. The EEG failed to reveal any focal, lateralized or epileptiform abnormalities . Clinical correlation is recommended.
[2017-04-14] MEDS: DULoxetine HCL 60 MG CAPSULE.DR PO SCH (09:49)
[2017-04-14] MEDS: amLODIPine 10 MG TAB PO SCH (09:49)
[2017-04-14] MEDS: LISINOPRIL 20 MG TAB PO SCH (09:49)
[2017-04-14] MEDS: FAMOTIDINE 20 MG/2 ML VIAL IV SCH (09:50)
--- NOTE | 2017-04-14 10:24 | P.PN ---
Subjective Principal diagnosis: Femoral neck fracture left hip Status post hemiarthroplasty left hip his is an 87-year-old male who is status post hemiarthroplasty of the left hip for subcapital fracture. He is doing fairly well from an orthopedic standpoint. He continues to have some confusion. Objective - Vital Signs Vital signs: Vital Signs Temp 98.6 F 04/14/17 08:00 Pulse 104 H 04/14/17 08:00 Resp 18 04/14/17 08:00 BP 144/86 04/14/17 08:00 Pulse Ox 99 04/14/17 08:00 Intake & Output 04/13/17 04/14/17 04/14/17 18:59 06:59 18:59 Intake Total 4100 1200 Output Total 750 300 Balance 3350 900 Intake: IV 4100 Intake, IV Titration 1200 Amount Lactated Ringers 1,000 ml 1000 As IV .[facility] Rx#: [id number] ceFAZolin 2 gm In Sodium 200 Chloride 0.9% 100 ml @ 100 mls/hr IVPB Q8H [facility] Rx#:[id number] Output: Urine 450 300 Estimated Blood Loss 300 Other: Voiding Method Indwelling Catheter Indwelling Catheter - Exam This is a pleasant 87-year-old male in no acute distress. He is alert but confused. Exam of the left upper extremity reveals that his dressing has sanguinous drainage from the skin tears. He has full finger motion without difficulty or pain. Neurovascular status the upper extremity is intact. Exam of the left hip reveals that his dressing is clean, dry and intact. He has full foot and ankle motion but is able to flex and extend the knee without difficulty or pain. Neurovascular status to the lower extremity is intact. - Labs CBC & Chem 7: 04/13/17 14:54 04/13/17 07:14 Labs: Abnormal Lab Results - Last 24 Hours (Table) 04/13/17 04/13/17 04/13/17 Range/Units 14:54 14:59 16:12 WBC 21.8 H (3.8-10.6) k/uL RBC 4.02 L (4.30-5.90) m/uL MCV 103.0 H (80.0-100.0) fL Neutrophils # 20.7 H (1.3-7.7) k/uL Lymphocytes # 0.5 L (1.0-4.8) k/uL POC Glucose (mg/dL) 122 H 104 H (75-99) mg/dL 04/14/17 Range/Units 07:01 WBC (3.8-10.6) k/uL RBC (4.30-5.90) m/uL MCV (80.0-100.0) fL Neutrophils # (1.3-7.7) k/uL Lymphocytes # (1.0-4.8) k/uL POC Glucose (mg/dL) 122 H (75-99) mg/dL Assessment and Plan (1) Closed head injury Status: Acute (2) Fall Status: Acute (3) Left displaced femoral neck fracture Status: Acute Plan: The clinical findings are discussed with the patient and his nurse. Nursing staff will change dressing to the left upper extremity. He is weightbearing as tolerated with walker but will require assistance. It is recommended he go to inpatient rehab. Continue current care.
[2017-04-14] MEDS: LACTATED RINGERS 1,000 ML IV SCH (10:37)
[2017-04-14 11:31] LABS: Glucose,Whole Blood 154 mg/dL (75-99)
--- NOTE | 2017-04-14 16:19 | PN ---
DATE OF SERVICE: 04/14/2017 He underwent left hip surgery. He does not seem to be in respiratory distress. On physical examination, blood pressure is 144/86, respiratory rate 18, pulse of 104, temperature 98.6, O2 sat on 3 liters by nasal cannula is 99%. HEENT is unremarkable. Chest is clear. Cardiovascular S1 and S2. ABDOMEN: Soft. There is no edema. There is surgical dressing over the left hip and over the left arm. Labs reveal a white count of 21.8, hemoglobin 13.2. IMPRESSION: 1. Closed head injury. 2. Left femoral neck displaced neck fracture status post hemiarthroplasty. 3. Metabolic encephalopathy. Continue supportive care. GI and DVT prophylaxis. Increase his activity level if able. Prognosis is guarded.
[2017-04-14 16:51] LABS: Glucose,Whole Blood 105 mg/dL (75-99)
[2017-04-14] MEDS: MULTIVITAMINS, THERA 1 EACH TAB PO SCH (18:20)
[2017-04-14 20:07] LABS: Glucose,Whole Blood 131 mg/dL (75-99)
[2017-04-14] MEDS: MONTELUKAST 10 MG TAB PO SCH (21:02)
[2017-04-14] MEDS: OXYBUTYNIN XL 5 MG TAB.ER.24 PO SCH (21:02)
[2017-04-14] MEDS: SENNOSIDES-DOCUSATE SODIUM 1 EACH TAB PO SCH ×2 (21:02→21:10)
[2017-04-14] MEDS: ACETAMINOPHEN TAB 325 MG TAB PO PRN (21:05)
[2017-04-15] MEDS: IPRATROPIUM-ALBUTEROL 3 ML NEB INHALATION SCH ×6 (03:23→20:05)
[2017-04-15 07:05] LABS: Glucose,Whole Blood 89 mg/dL (75-99)
[2017-04-15] MEDS: LEVOTHYROXINE 100 MCG TAB PO SCH (09:14)
[2017-04-15] MEDS: FAMOTIDINE 20 MG/2 ML VIAL IV SCH (09:15)
[2017-04-15] MEDS: amLODIPine 10 MG TAB PO SCH (09:15)
[2017-04-15] MEDS: LISINOPRIL 20 MG TAB PO SCH (09:15)
[2017-04-15] MEDS: DULoxetine HCL 60 MG CAPSULE.DR PO SCH (09:15)
[2017-04-15] MEDS: ACETAMINOPHEN TAB 325 MG TAB PO PRN (09:18)
[2017-04-15] MEDS ORDERED: ACETAMINOPHEN IV (For NPO) 1,000 MG in EMPTY BAG 1 BAG IVPB PRN (10:05)
--- NOTE | 2017-04-15 10:05 | P.PN ---
Subjective Principal diagnosis: Femoral neck fracture left hip Status post hemiarthroplasty left hip his is an 87-year-old male who is status post hemiarthroplasty of the left hip for subcapital fracture. He is doing fairly well from an orthopedic standpoint. He continues to have some confusion. Objective - Vital Signs Vital signs: Vital Signs Temp 98.7 F 04/15/17 07:00 Pulse 84 04/15/17 08:54 Resp 18 04/15/17 07:00 BP 175/96 04/15/17 07:00 Pulse Ox 98 04/15/17 07:00 Intake & Output 04/14/17 04/15/17 04/15/17 18:59 06:59 18:59 Intake Total 1640 150 240 Output Total 600 1000 Balance 1040 -850 240 Intake: IV 800 150 Lactated Ringers 1,000 ml 800 150 @ 100 mls/hr IV .Q10H [facility] Rx#:[id number] Oral 840 240 Output: Urine 600 1000 Uretheral (Yee) 150 Other: Voiding Method Indwelling Catheter - Exam This is a pleasant 87-year-old male in no acute distress. He is alert but confused. Exam of the left upper extremity reveals that his dressing has sanguinous drainage from the skin tears. He has full finger motion without difficulty or pain. Neurovascular status the upper extremity is intact. Exam of the left hip reveals that his incision looks good. There is no erythema. There is moderate ecchymosis. There is no active drainage from the incision. He is unable to follow verbal commands today with his confusion. He is holding the left hip and a flexed position and I am unable to extend the hip or knee today. - Labs CBC & Chem 7: 04/13/17 14:54 04/13/17 07:14 Labs: Abnormal Lab Results - Last 24 Hours (Table) 04/14/17 04/14/17 04/14/17 Range/Units 11:29 16:49 20:05 POC Glucose (mg/dL) 154 H 105 H 131 H (75-99) mg/dL Assessment and Plan (1) Closed head injury Status: Acute (2) Fall Status: Acute (3) Left displaced femoral neck fracture Status: Acute Plan: The clinical findings are discussed with the patient and his nurse. Nursing staff will change dressing to the left upper extremity. I ordered an AP of the hip for reevaluation. The hip x-ray looks good. The femoral component is well- seated in the acetabulum. I will order IV acetaminophen for pain management. It is recommended he go to inpatient rehab. Continue current care.
--- NOTE | 2017-04-15 10:33 | XR ---
EXAMINATION TYPE: XR Hip Limited LT DATE OF EXAM: 04/15/2017 CLINICAL HISTORY: Postoperative evaluation TECHNIQUE: Single portable view of the left hip was submitted. FINDINGS: Noted are changes of left hip hemiarthroplasty. Alignment is anatomic. Postsurgical soft t issue changes are evident. IMPRESSION: Satisfactory postoperative alignment
[2017-04-15] MEDS: LACTATED RINGERS 1,000 ML IV SCH ×2 (10:43→13:59)
[2017-04-15] MEDS: SODIUM CHLORIDE 0.9% 1,000 ML IV SCH (10:44)
[2017-04-15 11:18] LABS: Glucose,Whole Blood 117 mg/dL (75-99)
[2017-04-15] MEDS: MULTIVITAMINS, THERA 1 EACH TAB PO SCH (12:32)
[2017-04-15 14:50] LABS: Basophils % (A) 0 %; CHCM 33.9; Eosinophils # (A) 0.1 k/uL (0-0.7); Eosinophils % (A) 1 %; HCT 29.8 % (39.0-53.0); HGB 10.5 gm/dL (13.0-17.5); Luc % (Auto) 1; Lymphocytes # (A) 0.7 k/uL (1.0-4.8); Lymphocytes % (A) 7 %; MCH 34.6 pg (25.0-35.0); MCHC 35.3 g/dL (31.0-37.0); MCV 97.9 fL (80.0-100.0); Monocytes # (A) 0.4 k/uL (0-1.0); Monocytes % (A) 4 %; Neutrophils # (A) 8.5 k/uL (1.3-7.7); Neutrophils % (A) 87 %; RBC 3.04 m/uL (4.30-5.90); RDW 14.7 % (11.5-15.5); WBC 9.7 k/uL (3.8-10.6); WBC (Perox) 10.13
--- NOTE | 2017-04-15 19:19 | PN ---
DATE OF SERVICE: 04/15/2017. He has been sleeping but is arousable. He does not seem to be in any respiratory distress. He seems to be under fair control. His narcotic meds have been discontinued and he has been just kept on Tylenol. On physical examination, his blood pressure 175/96, respiratory rate 18, pulse rate 99, temperature 98.7. O2 sat on 4 liters by nasal cannula is 98%. HEENT is unremarkable. Chest reveals decreased breath sounds. No wheeze. Cardiovascular system reveals S1 and S2. ABDOMEN: Soft. There is surgical dressing over the left hip as well as the left arm and forearm. IMPRESSION: 1. Left hip fracture status post repair. 2. Closed head injury. 3. Medical debility. Continue supportive care. GI and DVT prophylaxis. His prognosis is fair. Would consult Dr. Lizandro Flower from physical medicine and rehab to see if he is a candidate for rehab.
[2017-04-15] MEDS ORDERED: IPRATROPIUM-ALBUTEROL 3 ML NEB INHALATION PRN (19:32)
[2017-04-15 21:24] LABS: Glucose,Whole Blood 122 mg/dL (75-99)
[2017-04-15] MEDS: MONTELUKAST 10 MG TAB PO SCH (21:37)
[2017-04-15] MEDS: OXYBUTYNIN XL 5 MG TAB.ER.24 PO SCH (21:38)
[2017-04-15] MEDS: SENNOSIDES-DOCUSATE SODIUM 1 EACH TAB PO SCH (21:38)
[2017-04-16] MEDS: LEVOTHYROXINE 100 MCG TAB PO SCH (06:22)
--- NOTE | 2017-04-16 07:05 | P.CONS ---
History of Present Illness - Chief Complaint Walking difficulty - History of Present Illness Admitted to [facility] April 11 with history of history of fall and left hip pain. X-ray demonstrated fracture. Seen by Dr. Prakash Lawrence. Dr. Dwyer did perform hemiarthroplasty PT started performing passive range of motion. Nurse reports 3 person assist. Previous functional history: Unobtainable from patient. Review of Systems Review of systems: Patient unable to answer questions and review elicited by responses and chart. ENT: Denies sneezes or discharge. Eyes: Denies discharge or photophobia. Cardiac: Denies chest pain or palpitation. Pulmonary: Denies cough or shortness of breath. Gastrointestinal: Denies nausea, emesis, constipation, diarrhea. Genitourinary: Denies discharge or frequency. Musculoskeletal: Generalized discomfort perhaps most and right hip. Neurologic: Generalized confusion. Endocrine: Denies shakes or sweats. Oncology: Denies cancers. Dermatologic: Denies rash, itching, pruritus. ALLERGY/immunology: Denies sneezes, rashes. Past Medical History Past Medical History: Cancer, CVA/TIA, Hypertension, Myocardial Infarction ([place]) , Thyroid Disorder Additional Past Medical History / Comment(s): Gout; Skin Ca, uti-ecoli, bradycardia, had pne vaccine after age 63-not sure of date Last Myocardial Infarction Date:: 2013 History of Any Multi-Drug Resistant Organisms: None Reported Past Surgical History: Orthopedic Surgery Additional Past Surgical History / Comment(s): Removal of skin ca lesions. FAMILY UNSURE IF PATIENT HAD HEART CATHERIZATION Past Anesthesia/Blood Transfusion Reactions: No Reported Reaction Past Psychological History: Anxiety Smoking Status: Former smoker Past Alcohol Use History: None Reported, Rare Past Drug Use History: None Reported - Past Family History Mother Family Medical History: COPD, CVA/TIA Additional Family Medical History / Comment(s): AGE 49 Father Family Medical History: No Reported History Additional Family Medical History / Comment(s): " FROM OLD AGE" Medications and Allergies Home Medications Medication Instructions Recorded Confirmed Type ALPRAZolam [Xanax] 0.5 mg PO BID PRN 05/13/15 04/11/17 History Clopidogrel [Plavix] 75 mg PO DAILY 05/13/15 04/11/17 History DULoxetine HCL [Cymbalta] 60 mg PO DAILY 05/13/15 04/11/17 History Hydrocodone/Acetaminophen [[place] 1 tab PO QID PRN 05/13/15 04/11/17 History 10-325] Montelukast [Singulair] 10 mg PO HS 05/13/15 04/11/17 History Albuterol Nebulized [Ventolin 2.5 mg INHALATION RT-QID PRN 09/05/16 04/11/17 History Nebulized] Oxybutynin Chloride [Ditropan XL] 5 mg PO HS 09/05/16 04/11/17 History Ipratropium Nebulized [Atrovent 0.5 mg INHALATION RT-QID PRN 04/11/17 04/11/17 History Nebulized] Levothyroxine Sodium [Synthroid] 100 mcg PO DAILY 04/11/17 04/11/17 History Lisinopril 40 mg PO DAILY 04/11/17 04/11/17 History predniSONE 10 mg PO DAILY 04/11/17 04/11/17 History Allergies Allergy/AdvReac Type Severity Reaction Status Date / Time No Known Allergies Allergy Verified 04/13/17 11:03 Physical Exam Vitals: Vital Signs Temp Pulse Pulse Resp BP BP Pulse Ox 04/16/17 03:33 98.1 F 94 16 150/79 94 L 04/15/17 20:00 100 F H 66 16 148/65 04/15/17 19:36 84 04/15/17 19:26 88 04/15/17 15:47 88 04/15/17 15:38 88 04/15/17 14:40 98.8 F 65 16 132/65 95 04/15/17 11:49 92 04/15/17 11:38 92 04/15/17 08:54 84 04/15/17 08:42 88 Intake and Output 04/15/17 04/16/17 04/16/17 22:59 06:59 14:59 Intake Total 460 Output Total 300 500 Balance 160 -500 Intake: Oral 460 Output: Urine 300 500 Other: Voiding Method Indwelling Catheter Skin: Atrophic, some bruising noted. General: Medium build and generally comfortable appearance when lying still. Head: Normocephalic, atraumatic. Eyes: Symmetric. Pupils equal round. Ears: Symmetric. Hearing within normal limits. Mouth: Clear. Neck: Supple. Carotid without bruit. Cardiac: Regular rate and rhythm. Lungs: Clear anteriorly and posteriorly. Abdomen: Soft active nontender. Extremities: Right hip clean and dressed. Neurological: Mental status: Alert, cooperative, pleasant. Cranial nerves: Symmetric facial tone and trapezius. Motor: Moves limbs locally to noxious stimulus. Sensation: See above. DTRs: Symmetric and equal throughout. Mobility: Nurse reports 3 person assistance. Results CBC & Chem 7: 04/15/17 14:23 04/13/17 07:14 Labs: Abnormal Lab Results - Last 24 Hours (Table) 04/15/17 04/15/17 04/15/17 Range/Units 11:16 14:23 21:23 RBC 3.04 L (4.30-5.90) m/uL Hgb 10.5 L (13.0-17.5) gm/dL Hct 29.8 L (39.0-53.0) % Plt Count 129 L (150-450) k/uL Neutrophils # 8.5 H (1.3-7.7) k/uL Lymphocytes # 0.7 L (1.0-4.8) k/uL POC Glucose (mg/dL) 117 H 122 H (75-99) mg/dL Assessment and Plan (1) Left displaced femoral neck fracture Status: Acute Plan: Impression: 1. Walking difficulty. 2. Left hip fracture status post alhaji-spastic. 3. Closed head injury. 4. History of cancer. 5. History of stroke. 6. History of [place]. 7. hypertension. Comments and plan: At this time PT ordered an ongoing. We'll add OT and speech. Rehab prognosis currently guarded. Would not be able to tolerate and benefit from a 3 hour program currently.
[2017-04-16] MEDS: LISINOPRIL 20 MG TAB PO SCH (08:09)
[2017-04-16] MEDS: amLODIPine 10 MG TAB PO SCH (08:09)
[2017-04-16] MEDS: MULTIVITAMINS, THERA 1 EACH TAB PO SCH (08:09)
[2017-04-16] MEDS: DULoxetine HCL 60 MG CAPSULE.DR PO SCH (08:09)
[2017-04-16] MEDS: FAMOTIDINE 20 MG/2 ML VIAL IV SCH (08:09)
[2017-04-16] MEDS: LACTATED RINGERS 1,000 ML IV SCH ×2 (08:10→09:28)
[2017-04-16] MEDS: SODIUM CHLORIDE 0.9% 1,000 ML IV SCH (09:29)
[2017-04-16] MEDS: IPRATROPIUM-ALBUTEROL 3 ML NEB INHALATION SCH ×4 (09:38→19:34)
--- NOTE | 2017-04-16 14:23 | P.PN ---
Subjective 87-year-old being seen this morning on rounds currently is sitting up in bed the nursing director is feeding the patient pudding no difficulty noted with swallowing patient is postop hemiarthroplasty left hip after patient had sustained a fall. Patient has been seen by Dr. Valentine is felt not to be a candidate for acute rehab at this time. Patient does require the assist of 3 to transfer from bed to chair. Currently no labs pending this morning patient currently is more awake and alert this morning compared to prior assessment Patient did have a swallowing eval this afternoon it was noted the patient has severely impaired oropharyngeal renal swallow. Moderate to severe coughing episodes were observed with thin pureed and solid consistency. Speech is recommending that the patient be seen with INTERFACE DESIGNER at the facility for further dysphagia management Objective - Vital Signs Vital signs: Vital Signs Temp 98.1 F 04/16/17 03:33 Pulse 86 04/16/17 12:17 Resp 16 04/16/17 03:33 BP 150/79 04/16/17 03:33 Pulse Ox 94 L 04/16/17 03:33 Intake & Output 04/15/17 04/16/17 04/16/17 18:59 06:59 18:59 Intake Total 8392 405 3059 Output Total 1000 800 1 Balance 900 -700 1359 Intake: IV 700 Lactated Ringers 1,000 ml 700 @ 50 mls/hr IV .Q20H [facility] Rx#:[id number] Intake, IV Titration 800 Amount Sodium Chloride 0.9% 1, 800 000 ml @ 100 mls/hr IV . Q10H [facility] Rx#:[id number] Oral 1200 100 560 Output: Urine 1000 800 Uretheral (Yee) 1000 Urine/Stool Mix 1 Other: Voiding Method Indwelling Catheter Indwelling Catheter Indwelling Catheter - Exam Physical exam 87-year-old male sitting up in bed oriented to self hard of hearing Lungs diminished at the bases otherwise adequate air movement on nasal cannula 2 L Heart S1-S2 audible and regular Abdomen soft nontender indwelling Yee catheter in place no stooling Extremities dressing to the left hip dry trace pedal edema bilaterally - Labs CBC & Chem 7: 04/15/17 14:23 04/13/17 07:14 Labs: Abnormal Lab Results - Last 24 Hours (Table) 04/15/17 04/15/17 Range/Units 14:23 21:23 RBC 3.04 L (4.30-5.90) m/uL Hgb 10.5 L (13.0-17.5) gm/dL Hct 29.8 L (39.0-53.0) % Plt Count 129 L (150-450) k/uL Neutrophils # 8.5 H (1.3-7.7) k/uL Lymphocytes # 0.7 L (1.0-4.8) k/uL POC Glucose (mg/dL) 122 H (75-99) mg/dL Assessment and Plan Plan: Impression Fall from a standing position resulting in left hip pain suspect due to a left displaced femoral neck fracture Present on admission multiple purple ecchymotic bruising noted Present on admission acute encephalopathy different from baseline Present on admission leukocytosis suspect reactive Present on admission acute renal failure suspect due to clinical dehydration poor oral intake Hypothyroidism on supplements Hypertension with hypertensive heart disease with LVH per echocardiogram done on August 2016 Left ventricular systolic function normal with an EF between 55 and 60 per echocardiogram August 2016 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 Sarah Hyman nurse practitioner acting as a scribe for dr ramirez
--- NOTE | 2017-04-16 16:38 | CT ---
EXAMINATION TYPE: CT brain wo con DATE OF EXAM: 04/16/2017 COMPARISON: Previous study dated 04/12/2017 HISTORY: Increased confusion. CT DLP: 999.40 mGycm Automated exposure control for dose reduction was used. FINDINGS: There are generalized changes of sulcal prominence and ventriculomegaly, compatible with atrophic alden nge. There is diffuse periventricular white matter lucency, compatible with chronic white matter isch emic change. There is been interval development of the left frontal infarct. This is subacute. There is also evidence of an old lacunar infarct in the external capsule on the left. There is no mass effe ct, midline shift or intracranial blood. There is mild mucoperiosteal thickening involving the ethmoid air cells. There is also some mucosal t hickening involving the maxillary sinuses. There is a small amount of fluid in the right mastoid air cells. IMPRESSION: 1. EVOLVING LEFT FRONTAL INFARCT. 2. ATROPHIC CHANGE. 3. CHRONIC WHITE MATTER ISCHEMIC CHANGE. 4. 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 5. MINIMAL SINUS MUCOSAL DISEASE.
--- NOTE | 2017-04-16 17:51 | P.PN ---
Subjective Principal diagnosis: Head concussion The patient is an 87-year-old man was admitted to the hospital on 04/11/2017 after a fall and head injury. He had fallen backwards on concrete. He had fractured his left neck of femur. The patient had a CAT scan of the brain on admission which showed atrophy, and old lacunar infarct Patient had some confusion and encephalopathy and a second CT of the brain was performed on 04/12 which showed only atrophy and an old lacunar infarct. The patient underwent surgery on 04/13/2017. The patient has been confused since admission. He is having some difficulty swallowing.. Family reports that he was able to speak a sentence yesterday afternoon and he was able to recognize his daughter's son-in-law.. He was able to say at the time that he did not want anything more to eat. Today the patient is awake alert and looking more attentive. His speech is muffled. He is not moving his right upper extremity. He had a CT of the brain today which showed a subacute infarct in the left frontal lobe. Objective - Vital Signs Vital signs: Vital Signs Temp 98.3 F 04/16/17 15:01 Pulse 82 04/16/17 15:26 Resp 16 04/16/17 15:01 BP 149/69 04/16/17 15:01 Pulse Ox 92 L 04/16/17 15:01 Intake & Output 04/15/17 04/16/17 04/16/17 18:59 06:59 18:59 Intake Total 0082 829 6016 Output Total 1000 800 901 Balance 900 -700 519 Intake: IV 700 Lactated Ringers 1,000 ml 700 @ 50 mls/hr IV .Q20H [facility] Rx#:[id number] Intake, IV Titration 800 Amount Sodium Chloride 0.9% 1, 800 000 ml @ 100 mls/hr IV . Q10H [facility] Rx#:[id number] Oral 1200 100 620 Output: Urine 1000 800 900 Uretheral (Yee) 1000 900 Urine/Stool Mix 1 Other: Voiding Method Indwelling Catheter Indwelling Catheter Indwelling Catheter - Constitutional General appearance: Present: average body habitus - EENT ENT: Present: hard of hearing - Cardiovascular Rhythm: regular - Neurologic Neurologic Comment(s): Mental status :he was awake he was alert ,,he did not respond verbally to any questions he did try to speak and his speech was muffled. He seemed to be able to follow some commands. Cranial nerve examination was difficult to test Motor examination revealed right hemiparesis - Musculoskeletal Musculoskeletal: Present: right sided weakness - Labs CBC & Chem 7: 04/15/17 14:23 04/13/17 07:14 Labs: Abnormal Lab Results - Last 24 Hours (Table) 04/15/17 Range/Units 21:23 POC Glucose (mg/dL) 122 H (75-99) mg/dL Assessment and Plan (1) Ischemic stroke of frontal lobe Status: Acute Code(s): I63.9 - CEREBRAL INFARCTION, UNSPECIFIED (2) Left displaced femoral neck fracture Status: Acute Code(s): S72.002A - FRACTURE OF UNSP PART OF NECK OF LEFT FEMUR , INIT (3) Closed head injury Status: Acute Code(s): S09.90XA - UNSPECIFIED INJURY OF HEAD, INITIAL ENCOUNTER (4) ARF (acute renal failure) Status: Acute Code(s): N17.9 - ACUTE KIDNEY FAILURE, UNSPECIFIED (5) Bradycardia Status: Acute Code(s): R00.1 - BRADYCARDIA, UNSPECIFIED Plan: The patient is an 87-year-old man who presented to the hospital after a fall and head injury and fracture of the left hip. The patient had CT of the brain on 04/11/2017 and 04/12/2017 which showed old left lacunar infarct. Patient has been having some swallowing difficulty. On examination today is not moving his right arm very well. The patient had a follow-up CT today which shows a subacute left frontal infarct. Recommend evaluation with carotid ultrasound and echocardiogram. He will also have a follow-up EEG.
[2017-04-16] MEDS: WARFARIN 2 MG TAB PO SCH (19:11)
[2017-04-16] MEDS: HYDROcodone/APAP 5-325MG 1 EACH TAB PO PRN (21:13)
[2017-04-16] MEDS: OXYBUTYNIN XL 5 MG TAB.ER.24 PO SCH (21:13)
[2017-04-16] MEDS: MONTELUKAST 10 MG TAB PO SCH (21:13)
[2017-04-16] MEDS: SENNOSIDES-DOCUSATE SODIUM 1 EACH TAB PO SCH (21:13)
[2017-04-17] MEDS: LACTATED RINGERS 1,000 ML IV SCH (04:55)
[2017-04-17] MEDS: LEVOTHYROXINE 100 MCG TAB PO SCH (05:51)
[2017-04-17 07:10] LABS: Glucose,Whole Blood 91 mg/dL (75-99)
[2017-04-17 07:28] LABS: Prothrombin Time 10.1 sec (9.0-12.0)
--- NOTE | 2017-04-17 08:50 | US ---
EXAMINATION TYPE: US carotid duplex BILAT DATE OF EXAM: 04/17/2017 COMPARISON: NONE CLINICAL HISTORY: Stroke, technically difficult study, patient unable to cooperate with examiner. EXAM MEASUREMENTS: RIGHT: Peak Systolic Velocity (PSV) cm/sec ----- Right CCA: 33.9 ----- Right ICA: 80.2 ----- Right ECA: 75.9 ICA/CCA ratio: 2.4 RIGHT: End Diastole cm/sec ----- Right CCA: 8.3 ----- Right ICA: 17.8 ----- Right ECA: 0.0 LEFT: Peak Systolic Velocity (PSV) cm/sec ----- Left CCA: 42.6 ----- Left ICA: 105.5 ----- Left ECA: 79.9 ICA/CCA ratio: 2.5 LEFT: End Diastole cm/sec ----- Left CCA: 8.3 ----- Left ICA: 10.2 ----- Left ECA: 0.0 VERTEBRALS (direction of flow): Right Vertebral: Antegrade Left Vertebral: Antegrade Moderate to severe plaque, mild velocity increases seen in bilateral ICA's. IMPRESSION: I DO NOT SEE EVIDENCE OF A HEMODYNAMICALLY SIGNIFICANT STENOSIS IN EITHER CAROTID SYSTEM. Criteria for Assigning % of Stenosis / Diameter reduction (Estimation based on the indirect measurements of the internal carotid artery velocities (ICA PSV). 1. Normal (no stenosis)=ICA PSV < 125 cm/s: ratio < 2.0: ICA EDV<40 cm/s. 2. Less than 50% stenosis=ICA PSV < 125 cm/s: ratio < 2.0: ICA EDV<40 cm/s. 3. 50 to 69% stenosis=ICA PSV of 125 to 230 cm/s: ration 2.0 ? 4.0: ICA EDV 40-100 cm/s. 4. Greater than 70% stenosis to near occlusion= ICA PSV > 230 cm/s: ratio > 4.0: ICA EDV > 100 cm/s. 5. Near occlusion= ICA PSV velocities may be low or undetectable: variable ratio and ICA EDV. 6. Total occlusion=unable to detect flow.
--- NOTE | 2017-04-17 09:46 | P.PN ---
Subjective Principal diagnosis: Status post left hip hemiarthroplasty This is a 87 year-old male post left hip hemiarthroplasty. This is post-op day 4. The patient was evaluated at the bedside today. The patient denies nausea, vomiting, abdominal pain, shortness of breath, and chest pain this morning. He states his pain is controlled at this time. The patient was found to have a subacute infarct on a repeat CT of his head, neurology is following closely. After clearance from medical in neurology the patient will be transferred to skilled rehab. Objective - Vital Signs Vital signs: Vital Signs Temp 98.0 F 04/17/17 07:00 Pulse 84 04/17/17 07:50 Resp 18 04/17/17 07:00 BP 177/86 04/17/17 07:00 Pulse Ox 100 04/17/17 07:00 Intake & Output 04/16/17 04/17/17 04/17/17 18:59 06:59 18:59 Intake Total 1660 1190 Output Total 901 Balance 759 1190 Intake: IV 600 Lactated Ringers 1,000 ml 600 @ 50 mls/hr IV .Q20H [facility] Rx#:[id number] Intake, IV Titration 800 Amount Sodium Chloride 0.9% 1, 800 000 ml @ 100 mls/hr IV . Q10H [facility] Rx#:[id number] Oral 860 590 Output: Urine 900 Uretheral (Yee) 900 Urine/Stool Mix 1 Other: Voiding Method Indwelling Catheter Indwelling Catheter # Bowel Movements 1 1 - Exam The patient does not appear in acute distress. Alert and orientated x3. Dressing is clean dry and intact. Incision appears fine with no erythema or active drainage. Calf is soft and nontender. Good foot and ankle motion without difficulty. Sensation and circulatory status is intact. - Labs CBC & Chem 7: 04/15/17 14:23 04/13/17 07:14 Assessment and Plan (1) Fall Status: Acute (2) Left displaced femoral neck fracture Status: Acute (3) Status post hip hemiarthroplasty Status: Acute Plan: 1. Continue pain control 2. Anticoagulation with Coumadin per medical management 3. Continue physical therapy and ambulation 4. Anticipate discharge to skilled rehab when cleared by medical management and neurology
[2017-04-17] MEDS: LISINOPRIL 20 MG TAB PO SCH (10:18)
[2017-04-17] MEDS: amLODIPine 10 MG TAB PO SCH (10:18)
[2017-04-17] MEDS: DULoxetine HCL 60 MG CAPSULE.DR PO SCH (10:19)
[2017-04-17] MEDS: MULTIVITAMINS, THERA 1 EACH TAB PO SCH (10:19)
[2017-04-17] MEDS: IPRATROPIUM-ALBUTEROL 3 ML NEB INHALATION SCH ×4 (11:22→20:38)
--- NOTE | 2017-04-17 12:48 | P.PN ---
Subjective 87-year-old male being seen this morning currently is sitting up in bed is awake hard of hearing. Is following simple command. Did note the patient does have a new onset of right upper extremity weakness. Patient did have a CAT scan done yesterday on the for increased confusion with inability to move the right upper arm. CAT scan of the brain done on the did show a subacute infarct in the left frontal lobe. Patient's initial presentation was to the hospital on April 11 after patient had sustained a fall fell backwards on concrete. Patient sustained a fracture in the left neck of the femur. Patient had a CAT scan of the brain on admission it did show atrophy and old Lacunar infarct. Patient became increasingly more confused a second CAT scan of the brain was performed on April 12 which did show only atrophy with an old lacunar infarct. [facility] and did undergo surgery on April 13 a left hip hemiarthroplasty patient is currently being evaluated by neurology service. Carotid Doppler studies ordered on April 16 were negative for any acute findings Objective - Vital Signs Vital signs: Vital Signs Temp 98.0 F 04/17/17 07:00 Pulse 88 04/17/17 11:35 Resp 18 04/17/17 07:00 BP 177/86 04/17/17 07:00 Pulse Ox 100 04/17/17 07:00 Intake & Output 04/16/17 04/17/17 04/17/17 18:59 06:59 18:59 Intake Total 1660 1190 Output Total 901 Balance 759 1190 Intake: IV 600 Lactated Ringers 1,000 ml 600 @ 50 mls/hr IV .Q20H [facility] Rx#:[id number] Intake, IV Titration 800 Amount Sodium Chloride 0.9% 1, 800 000 ml @ 100 mls/hr IV . Q10H [facility] Rx#:[id number] Oral 860 590 Output: Urine 900 Uretheral (Yee) 900 Urine/Stool Mix 1 Other: Voiding Method Indwelling Catheter Indwelling Catheter Indwelling Catheter # Bowel Movements 1 1 - Exam Physical exam 87-year-old male sitting up in bed oriented to self hard of hearing is more awake and alert will follow simple commands Lungs diminished at the bases otherwise adequate air movement on nasal cannula 2 L Heart S1-S2 audible and regular Abdomen soft nontender indwelling Yee catheter in place no stooling. Upper extremity weakness noted Extremities dressing to the left hip dry trace pedal edema bilaterally Skin multiple purple ecchymotic bruising noted to the right upper arm chest bilateral arms - Labs CBC & Chem 7: 04/15/17 14:23 04/13/17 07:14 Assessment and Plan Plan: Impression Fall from a standing position resulting in left hip pain suspect due to a left displaced femoral neck fracture Present on admission multiple purple ecchymotic bruising noted Present on admission acute encephalopathy different from baseline Present on admission leukocytosis suspect reactive Present on admission acute renal failure suspect due to clinical dehydration poor oral intake Hypothyroidism on supplements Hypertension with hypertensive heart disease with LVH per echocardiogram done on August 2016 Left ventricular systolic function normal with an EF between 55 and 60 per echocardiogram August 2016 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 Sarah Hyman nurse practitioner acting as a scribe for dr ramirez
[2017-04-17 14:09] VITALS: BMI 23.4
[2017-04-17] MEDS: WARFARIN 2 MG TAB PO SCH (18:21)
[2017-04-17] MEDS: MONTELUKAST 10 MG TAB PO SCH (21:26)
[2017-04-17] MEDS: SENNOSIDES-DOCUSATE SODIUM 1 EACH TAB PO SCH (21:26)
[2017-04-17] MEDS: OXYBUTYNIN XL 5 MG TAB.ER.24 PO SCH (21:26)
[2017-04-18] MEDS: LACTATED RINGERS 1,000 ML IV SCH (02:19)
[2017-04-18] MEDS: LEVOTHYROXINE 100 MCG TAB PO SCH (06:05)
[2017-04-18] MEDS: amLODIPine 10 MG TAB PO SCH (07:34)
[2017-04-18] MEDS: LISINOPRIL 20 MG TAB PO SCH (07:34)
[2017-04-18] MEDS: DULoxetine HCL 60 MG CAPSULE.DR PO SCH (07:34)
[2017-04-18] MEDS: MULTIVITAMINS, THERA 1 EACH TAB PO SCH (07:34)
[2017-04-18 07:36] LABS: INR 1.1 (<1.1); Prothrombin Time 10.8 sec (9.0-12.0)
[2017-04-18] MEDS: IPRATROPIUM-ALBUTEROL 3 ML NEB INHALATION SCH ×3 (08:00→15:59)
--- NOTE | 2017-04-18 09:05 | P.PN ---
Subjective Principal diagnosis: Status post left hip hemiarthroplasty This is a 87 year-old male post left hip hemiarthroplasty. This is post-op day 5. The patient was evaluated at the bedside today. The patient denies nausea, vomiting, abdominal pain, shortness of breath, and chest pain this morning. He states his pain is controlled at this time. The patient was found to have a subacute infarct on a repeat CT of his head, neurology is following closely. After clearance from medical in neurology the patient will be transferred to skilled rehab. Objective - Vital Signs Vital signs: Vital Signs Temp 99.5 F 04/18/17 07:00 Pulse 80 04/18/17 08:09 Resp 17 04/18/17 08:00 BP 147/73 04/18/17 07:00 Pulse Ox 97 04/18/17 07:00 Intake & Output 04/17/17 04/18/17 04/18/17 18:59 06:59 18:59 Intake Total 450 600 Output Total 1000 550 Balance -550 50 Weight 72 kg 72 kg Intake: IV 450 600 Lactated Ringers 1,000 ml 450 600 @ 50 mls/hr IV .Q20H [facility] Rx#:[id number] Output: Urine 1000 550 Uretheral (Yee) 1000 550 Other: Voiding Method Indwelling Catheter Indwelling Catheter Indwelling Catheter # Bowel Movements 1 - Exam The patient does not appear in acute distress. Alert and orientated x3. Dressing is clean dry and intact. Incision appears fine with no erythema or active drainage. Calf is soft and nontender. Good foot and ankle motion without difficulty. Sensation and circulatory status is intact. - Labs CBC & Chem 7: 04/15/17 14:23 04/13/17 07:14 Labs: Laboratory Tests 04/18/17 06:50 PT 10.8 INR 1.1 Assessment and Plan (1) Fall Status: Acute (2) Left displaced femoral neck fracture Status: Acute (3) Status post hip hemiarthroplasty Status: Acute Plan: 1. Continue pain control 2. Anticoagulation with Coumadin per medical management 3. Continue physical therapy and ambulation 4. Anticipate discharge to skilled rehab when cleared by medical management and neurology
[2017-04-18] MEDS: HYDROcodone/APAP 5-325MG 1 EACH TAB PO PRN ×2 (10:27→15:45)
[2017-04-18 10:34] LABS: Basophils % (A) 0 %; CH 32.4; CHCM 32.1; Eosinophils # (A) 0.2 k/uL (0-0.7); Eosinophils % (A) 3 %; HCT 30.8 % (39.0-53.0); HDW 2.67; Luc # (Auto) 0.18; Luc % (Auto) 2; Lymphocytes # (A) 0.9 k/uL (1.0-4.8); Lymphocytes % (A) 11 %; MCH 32.9 pg (25.0-35.0); MCHC 32.5 g/dL (31.0-37.0); MCV 101.3 fL (80.0-100.0); Macrocytosis Slight; Mean Platelet Volume 8.3; Monocytes # (A) 0.5 k/uL (0-1.0); Monocytes % (A) 6 %; Neutrophils # (A) 6.6 k/uL (1.3-7.7); Neutrophils % (A) 78 %; RBC 3.04 m/uL (4.30-5.90); RDW 14.3 % (11.5-15.5); WBC 8.5 k/uL (3.8-10.6); WBC (Perox) 9.11
--- NOTE | 2017-04-18 10:47 | ECHOF ---
Referral Reason:Stroke MEASUREMENTS -------- HEIGHT: 175.3 cm WEIGHT: 72.1 kg BP: 162/87 RVIDd: 3.0 cm (< 3.3) IVSd: 1.4 cm (0.6 - 1.1) LVIDd: 4.5 cm (3.9 - 5.3) LVPWd: 1.2 cm (0.6 - 1.1) IVSs: 1.7 cm LVIDs: 2.9 cm LVPWs: 1.3 cm Ao Diam: 3.5 cm (2.0 - 3.7) LA Diam: 5.3 cm (2.7 - 3.8) MV EXCURSION: 20.824 mm (> 18.000) MV EF SLOPE: 61 mm/s (70 - 150) EPSS: 0.6 cm MV E Mihai: 0.39 m/s MV DecT: 300 ms MV A Mihai: 0.87 m/s MV E/A Ratio: 0.45 RAP: 5.00 mmHg RVSP: 16.77 mmHg FINDINGS -------- Sinus rhythm. Pt Confused. There is mild concentric left ventricular hypertrophy. Overall left ventricular systolic function is normal with, an EF between 55 - 60 %. The right ventricle is normal in size. The left atrial size is normal. The right atrial size is normal. There is mild aortic valve sclerosis. There is no evidence of aortic regurgitation. Mild mitral annular calcification present. Mild mitral regurgitation is present. Mild tricuspid regurgitation present. There is no evidence of pulmonary hypertension. The right ventricular systolic pressure, as measured by Doppler, is 16.77mmHg. There is no pulmonic regurgitation present. The aortic root size is normal. Echo free space may represent effusion or a pericardial fat pad. CONCLUSIONS -------- 1. Pt Confused. 2. There is no pulmonic regurgitation present. 3. The aortic root size is normal. 4. Echo free space may represent effusion or a pericardial fat pad. 5. There is mild concentric left ventricular hypertrophy. 6. Overall left ventricular systolic function is normal with, an EF between 55 - 60 %. 7. There is mild aortic valve sclerosis. 8. Mild mitral annular calcification present. 9. Mild mitral regurgitation is present. 10. Mild tricuspid regurgitation present. 11. There is no evidence of pulmonary hypertension. 12. The right ventricular systolic pressure, as measured by Doppler, is 16.77mmHg. CVT RN: Natasha Narayan RDCS
--- NOTE | 2017-04-18 10:49 | EEG ---
DATE OF SERVICE: 04/17/2017 INDICATIONS FOR EXAMINATION: This patient is an 87 -year-old male admitted to the hospital with closed head injury and fall. CT scan of the brain reveals acute left frontal lobe stroke. AGE: 87Y EEG FINDINGS: A routine 21 channel awake, digital EEG recording was accomplished utilizing the 10-20 international system with bipolar and referential montages. The background activity in the most alert resting state consists of a low to medium amplitude, poorly developed and poorly sustained 4-5 Hz activity over the posterior head regions. This posterior rhythm attenuates minimally to eye opening. There is a small amount of low amplitude 18-20 Hz beta activity seen maximally over the anterior head regions. Muscle and movement artifact was observed on several occasions during the tracing. Hyperventilation was not performed. Photic stimulation at flash frequencies of 2-30 Hz produced a minimal occipital driving response. Towards the later portion of the tracing, the patient does drift into spontaneous drowsiness. No epileptiform discharges were seen. IMPRESSION: This EEG is moderately abnormal in a diffuse fashion due to slowing of the EEG background. The EEG failed to reveal any focal, lateralized or epileptiform abnormalities. If clinically indicated, a follow-up EEG is recommended. Clinical correlation is recommended.
--- NOTE | 2017-04-18 12:55 | CT ---
EXAMINATION TYPE: CT brain wo con DATE OF EXAM: 04/18/2017 COMPARISON: Prior head CT 04/16/2017 HISTORY: Follow up CT of possible stroke CT DLP: 1201 mGycm Automated exposure control for dose reduction was used. FINDINGS: The area of ill-defined low-attenuation towards the convexity on the left with effacement of the sulc i is again noted, there is loss of byrne-white differentiation. Periventricular white matter low-atten uation, areas of prior lacunar infarcts are again noted. There is no hemorrhage or hydrocephalus. Cer ebral vascular calcifications are present. Calvarium is intact. IMPRESSION: Similar findings to prior exam. Findings compatible with probable left frontal infarct, cerebrovascul ar accident. Age-related changes of atrophy and probable chronic small vessel ischemia. Follow-up is recommended.
--- NOTE | 2017-04-18 13:13 | P.DS ---
Providers Date of admission: 04/11/17 19:20 Expected date of discharge: 04/18/17 Attending physician: Prakash Ramirez Consults: 04/11/17 19:00 Consult Physician Urgent Consulting Provider: Rafiq Dwyer Consult Reason/Comments: left femoral neck fracture Do you want consulting provider notified?: Already Contacted 04/12/17 11:57 Consult Physician Urgent Consulting Provider: Ulises Rodriguez Consult Reason/Comments: Increased confusion Do you want consulting provider notified?: Yes 04/15/17 13:44 Consult Physician Routine Consulting Provider: Lizandro Flower Consult Reason/Comments: medical debility Do you want consulting provider notified?: Yes Primary care physician: [facility] Course: 87-year-old male who presented on the day of admission to the emergency room after patient had sustained a fall from a standing position hitting the back of his head resulting in confusion which family reportedly was different from patient's baseline. Subsequent the patient was seen in the emergency room x- rays were obtained the computed tomography scan of the brain on admission showed no acute process. Patient reportedly had pain in the left hip x-ray obtained in the emergency room showed a fracture in the left neck of the femur. Orthopedic consultation was requested. A CAT scan of the brain was repeated on April 12 due to increased confusion noted the repeat CAT scan showed only after PE with old lacunar infarct Patient did undergo surgery on April 13 a left hip hemiarthroplasty was done. Postprocedure patient did develop increased confusion with right upper extremity weakness. A CAT scan was repeated on the CAT scan done on April 16 did show a subacute infarct of the left frontal lobe. Doppler studies to the bilateral carotids were negative. Patient did have an echocardiogram done. It showed left ventricular systolic function normal EF between 55 and 60%. A neurology consultation was requested. Patient's weakness involving the left upper extremity showed slight improvement. Patient continued to have intermittent episodes of confusion but was not as confused there was a slow improvement noted family was requesting that the patient be transferred to a subacute rehab for rehab neurology was asking for repeat CAT scan done that was done on April 18 the findings were similar to prior exam. Findings were compatible with a probable left frontal lobe infarct. Age related after P. Chronic small vessel ischemic changes noted Patient was felt to be hemodynamically stable from all consulting physicians and that the patient could be discharged to the ECF facility Impression Fall from a standing position resulting in left hip pain suspect due to a left displaced femoral neck fracture Present on admission multiple purple ecchymotic bruising noted Present on admission acute encephalopathy different from baseline Present on admission leukocytosis suspect reactive Present on admission acute renal failure suspect due to clinical dehydration poor oral intake Hypothyroidism on supplements Hypertension with hypertensive heart disease with LVH per echocardiogram done on August 2016 Left ventricular systolic function normal with an EF between 55 and 60 per echocardiogram August 2016 dementia suspect progressive New-onset increased confusion with left upper extremity weakness suspect due to a new CVA left frontal infarct The above dictated assessment and findings were discussed with dr ashley Ohara and the plan of care have been dictated as directed. Sarah Hyman nurse practitioner acting as a scribe for dr ramirez Patient Condition at Discharge: Stable Plan - Discharge Summary New Discharge Prescriptions: New Ipratropium-Albuterol Nebulize [Duoneb 0.5 mg-3 mg/3 ml Soln] 3 ml INHALATION RT-QID neb Warfarin [Coumadin] 2 mg PO DAILY@1800 #7 tab Acetaminophen Tab [Tylenol] 650 mg PO Q6HR PRN tab PRN Reason: Mild Pain Or Fever > 100.5 HYDROcodone/APAP 5-325MG [[place] 5-325] 1 each PO Q6HR PRN #30 tab PRN Reason: Pain Scale 1 To 5 Magnesium Hydroxide [Milk of Magnesia Concentrate] 2,400 mg PO DAILY PRN dose PRN Reason: Constipation Multivitamins, Thera [Multivitamin (formulary)] 1 each PO DAILY@1200 tab Sennosides-Docusate Sodium [Senokot-S] 2 each PO HS tab Continue Hydrocodone/Acetaminophen [[place] 10-325] 1 tab PO QID PRN PRN Reason: Pain DULoxetine HCL [Cymbalta] 60 mg PO DAILY Montelukast [Singulair] 10 mg PO HS Oxybutynin Chloride [Ditropan XL] 5 mg PO HS Albuterol Nebulized [Ventolin Nebulized] 2.5 mg INHALATION RT-QID PRN PRN Reason: Shortness Of Breath amLODIPine [Norvasc] 10 mg PO DAILY #30 tab Levothyroxine Sodium [Synthroid] 100 mcg PO DAILY Lisinopril 40 mg PO DAILY Discontinued ALPRAZolam [Xanax] 0.5 mg PO BID PRN PRN Reason: Anxiety Clopidogrel [Plavix] 75 mg PO DAILY predniSONE 10 mg PO DAILY No Action Ipratropium Nebulized [Atrovent Nebulized] 0.5 mg INHALATION RT-QID PRN PRN Reason: Shortness Of Breath Discharge Medication List DULoxetine HCL [Cymbalta] 60 mg PO DAILY 05/13/15 [History] Hydrocodone/Acetaminophen [[place] 10-325] 1 tab PO QID PRN 05/13/15 [History] Montelukast [Singulair] 10 mg PO HS 05/13/15 [History] Albuterol Nebulized [Ventolin Nebulized] 2.5 mg INHALATION RT-QID PRN 09/05/16 [ History] Oxybutynin Chloride [Ditropan XL] 5 mg PO HS 09/05/16 [History] amLODIPine [Norvasc] 10 mg PO DAILY #30 tab 09/14/16 [Rx] Ipratropium Nebulized [Atrovent Nebulized] 0.5 mg INHALATION RT-QID PRN [History] Levothyroxine Sodium [Synthroid] 100 mcg PO DAILY 04/11/17 [History] Lisinopril 40 mg PO DAILY 04/11/17 [History] Acetaminophen Tab [Tylenol] 650 mg PO Q6HR PRN tab 04/18/17 [Rx] HYDROcodone/APAP 5-325MG [[place] 5-325] 1 each PO Q6HR PRN #30 tab 04/18/17 [Rx] Ipratropium-Albuterol Nebulize [Duoneb 0.5 mg-3 mg/3 ml Soln] 3 ml INHALATION RT -QID neb 04/18/17 [Rx] Magnesium Hydroxide [Milk of Magnesia Concentrate] 2,400 mg PO DAILY PRN dose 04/18/17 [Rx] Multivitamins, Thera [Multivitamin (formulary)] 1 each PO DAILY@1200 tab [Rx] Sennosides-Docusate Sodium [Senokot-S] 2 each PO HS tab 04/18/17 [Rx] Warfarin [Coumadin] 2 mg PO DAILY@1800 #7 tab 04/18/17 [Rx] Follow up Appointment(s)/Referral(s): Radha Limon, CARISA [PHYSICIAN [employer]] - 3 Weeks Prakash Ramirez MD [Primary Care Provider] - 1-2 days Ambulatory/Diagnostic Orders: Prothrombin Time INR [LAB.AMB] Time Frame: 04/20/17, Location: Determined By Patient Activity/Diet/Wound Care/Special Instructions: May d/c when cleared medically. Medical to manage anticoagulation. WBAT w walker. May shower if no drainage from incision. Maintain posterior hip precautions. Discharge Disposition: TRANSFER TO SNF/ECF
[2017-04-18 14:30] VITALS: BP 132/65; PULSE 86; RESP 16; TEMP 97
== END 2017-04-18 16:39 | DRG 469 ==
LOC: EC 16:36 → 3SUR 19:20
PROVIDERS: ADMIT Family Medicine; ATTEND Family Medicine
PROC: 0SRS019 Replacement of Left Hip Joint, Femoral Surface with Metal Synthetic Substitute, Cemented, Open Approach (ICD-10-PCS; principal; 2017-04-13 12:00)
DX: S72.012A Unspecified intracapsular fracture of left femur, initial encounter for closed fracture (principal); G93.41 Metabolic encephalopathy; I63.9 Cerebral infarction, unspecified; N17.9 Acute kidney failure, unspecified; S06.0X9A Concussion with loss of consciousness of unspecified duration, initial encounter; R13.10 Dysphagia, unspecified; E86.0 Dehydration; I11.9 Hypertensive heart disease without heart failure; I25.2 Old myocardial infarction; M10.9 Gout, unspecified; E03.9 Hypothyroidism, unspecified; F41.9 Anxiety disorder, unspecified; R26.2 Difficulty in walking, not elsewhere classified; F03.90 Unspecified dementia, unspecified severity, without behavioral disturbance, psychotic disturbance, mood disturbance, and anxiety; H91.90 Unspecified hearing loss, unspecified ear; Z85.828 Personal history of other malignant neoplasm of skin; Z87.440 Personal history of urinary (tract) infections; Z87.891 Personal history of nicotine dependence; Z79.02 Long term (current) use of antithrombotics/antiplatelets; Z79.52 Long term (current) use of systemic steroids; Z79.899 Other long term (current) drug therapy; W18.30XA Fall on same level, unspecified, initial encounter; Y92.017 Garden or yard in single-family (private) house as the place of occurrence of the external cause; Z91.81 History of falling; Z86.73 Personal history of transient ischemic attack (TIA), and cerebral infarction without residual deficits; S30.0XXA Contusion of lower back and pelvis, initial encounter
CPT/HCPCS: 36415; 70450; 71010; 72125; 73501; 73502; 80053; 81001; 82140; 84439; 84443; 85025; 85610; 86850; 86900; 86901; 88305; 88311; 93005; 93306; 93880; 94640; 94760; 95816; 95819; 96361; 96374; 96376; 99285

== ENCOUNTER 2017-06-26 16:19 | Inpatient (IN) | payer MEDICARE ==
[2017-06-26] MEDS ORDERED: SODIUM CHLORIDE 0.9% 1,000 ML IV STA ×3 (16:22→18:11)
--- NOTE | 2017-06-26 16:22 | ED ---
General Adult HPI - General Stated complaint: decreased LOC Time Seen by Provider: 06/26/17 16:22 Source: RN notes reviewed, old records reviewed - History of Present Illness Initial comments: This is a 87-year-old male the ER for evaluation. Patient presents today for evaluation weakness. Patient's oropharyngeal able to give accurate history history of a from EMS the patient's chart. Patient brought in for altered mental status, decreased level of responsiveness - Related Data Home Medications Medication Instructions Recorded Confirmed DULoxetine HCL [Cymbalta] 60 mg PO DAILY 05/13/15 04/11/17 Hydrocodone/Acetaminophen [[place] 1 tab PO QID PRN 05/13/15 04/11/17 10-325] Montelukast [Singulair] 10 mg PO HS 05/13/15 04/11/17 Albuterol Nebulized [Ventolin 2.5 mg INHALATION RT-QID PRN 09/05/16 04/11/17 Nebulized] Oxybutynin Chloride [Ditropan XL] 5 mg PO HS 09/05/16 04/11/17 Ipratropium Nebulized [Atrovent 0.5 mg INHALATION RT-QID PRN 04/11/17 04/11/17 Nebulized] Levothyroxine Sodium [Synthroid] 100 mcg PO DAILY 04/11/17 04/11/17 Lisinopril 40 mg PO DAILY 04/11/17 04/11/17 Previous Rx's Medication Instructions Recorded amLODIPine [Norvasc] 10 mg PO DAILY #30 tab 09/14/16 Acetaminophen Tab [Tylenol] 650 mg PO Q6HR PRN tab 04/18/17 HYDROcodone/APAP 5-325MG [[place] 1 each PO Q6HR PRN #30 tab 04/18/17 5-325] Ipratropium-Albuterol Nebulize 3 ml INHALATION RT-QID neb 04/18/17 [Duoneb 0.5 mg-3 mg/3 ml Soln] Magnesium Hydroxide [Milk of 2,400 mg PO DAILY PRN dose 04/18/17 Magnesia Concentrate] Multivitamins, Thera [Multivitamin 1 each PO DAILY@1200 tab 04/18/17 (formulary)] Sennosides-Docusate Sodium 2 each PO HS tab 04/18/17 [Senokot-S] Warfarin [Coumadin] 2 mg PO DAILY@1800 #7 tab 04/18/17 Allergies Allergy/AdvReac Type Severity Reaction Status Date / Time No Known Allergies Allergy Verified 04/13/17 11:03 Review of Systems ROS Statement: Those systems with pertinent positive or pertinent negative responses have been documented in the HPI. ROS Other: All systems not noted in ROS Statement are negative. Past Medical History Past Medical History: Cancer, CVA/TIA, Hypertension, Myocardial Infarction ([place]) , Thyroid Disorder Additional Past Medical History / Comment(s): Gout; Skin Ca, uti-ecoli, bradycardia, had pne vaccine after age 63-not sure of date Last Myocardial Infarction Date:: 2013 History of Any Multi-Drug Resistant Organisms: None Reported Past Surgical History: Orthopedic Surgery Additional Past Surgical History / Comment(s): Removal of skin ca lesions. FAMILY UNSURE IF PATIENT HAD HEART CATHERIZATION Past Anesthesia/Blood Transfusion Reactions: No Reported Reaction Past Psychological History: Anxiety Smoking Status: Former smoker Past Alcohol Use History: None Reported, Rare Past Drug Use History: None Reported - Past Family History Mother Family Medical History: COPD, CVA/TIA Additional Family Medical History / Comment(s): AGE 49 Father Family Medical History: No Reported History Additional Family Medical History / Comment(s): " FROM OLD AGE" General Exam General appearance: alert, in no apparent distress Head exam: Present: atraumatic, normocephalic, normal inspection Eye exam: Present: normal appearance, PERRL, EOMI. Absent: scleral icterus, conjunctival injection, periorbital swelling ENT exam: Present: normal exam, mucous membranes moist Neck exam: Present: normal inspection. Absent: tenderness, meningismus, lymphadenopathy Respiratory exam: Present: normal lung sounds bilaterally. Absent: respiratory distress, wheezes, rales, rhonchi, stridor Cardiovascular Exam: Present: regular rate, normal rhythm, normal heart sounds. Absent: systolic murmur, diastolic murmur, rubs, gallop, clicks GI/Abdominal exam: Present: soft, normal bowel sounds. Absent: distended, tenderness, guarding, rebound, rigid Extremities exam: Present: normal inspection, full ROM, normal capillary refill. Absent: tenderness, pedal edema, joint swelling, calf tenderness Back exam: Present: normal inspection Neurological exam: Present: alert, oriented X3, CN II-XII intact Psychiatric exam: Present: normal affect, normal mood Skin exam: Present: warm, dry, intact, normal color. Absent: rash Course Vital Signs 06/26/17 06/26/17 06/26/17 16:20 17:27 17:36 Temperature 97.3 F L Pulse Rate 52 L 61 65 Respiratory 16 18 18 Rate Blood Pressure 91/51 105/54 123/59 O2 Sat by Pulse 96 96 95 Oximetry - Reevaluation(s) Reevaluation #1: 06/26/17 18:12 Patient has no change in clinical condition EKG Findings - EKG Comments: EKG Findings:: EKG shows sinus rhythm at 89, OR 214, QRS 72, QTc 454 Medical Decision Making - Medical Decision Making 87 male here for evaluation of weakness, severe dehydration and altered mental status. Patient will be admitted for fluid resuscitation - Lab Data Result diagrams: 06/26/17 16:39 06/26/17 16:39 Lab Results 06/26/17 06/26/17 06/26/17 Range/Units 16:39 16:39 16:39 WBC 11.1 H (3.8-10.6) k/uL RBC 4.04 L (4.30-5.90) m/uL Hgb 12.0 L (13.0-17.5) gm/dL Hct 38.0 L (39.0-53.0) % MCV 94.0 (80.0-100.0) fL MCH 29.7 (25.0-35.0) pg MCHC 31.6 (31.0-37.0) g/dL RDW 14.1 (11.5-15.5) % Plt Count 358 (150-450) k/uL Neutrophils % 81 % Lymphocytes % 10 % Monocytes % 5 % Eosinophils % 2 % Basophils % 0 % Neutrophils # 9.0 H (1.3-7.7) k/uL Lymphocytes # 1.1 (1.0-4.8) k/uL Monocytes # 0.6 (0-1.0) k/uL Eosinophils # 0.2 (0-0.7) k/uL Basophils # 0.0 (0-0.2) k/uL Hypochromasia Moderate PT (9.0-12.0) sec INR (<1.2) APTT (22.0-30.0) sec Sodium 139 (137-145) mmol/L Potassium 4.2 (3.5-5.1) mmol/L Chloride 111 H (98-107) mmol/L Carbon Dioxide 17 L (22-30) mmol/L Anion Gap 11 mmol/L BUN 44 H (9-20) mg/dL Creatinine 1.83 H (0.66-1.25) mg/dL Est GFR (MDRD) Af Amer 42 (>60 ml/min/1.73 sqM) Est GFR (MDRD) Non-Af 35 (>60 ml/min/1.73 sqM) Glucose 118 H (74-99) mg/dL Plasma Lactic Acid [place] (0.7-2.0) mmol/L Calcium 8.9 (8.4-10.2) mg/dL Phosphorus 3.8 (2.5-4.5) mg/dL Magnesium 1.6 (1.6-2.3) mg/dL Total Bilirubin 0.5 (0.2-1.3) mg/dL AST 32 (17-59) U/L ALT 33 (21-72) U/L Alkaline Phosphatase 77 (38-126) U/L Total Creatine Kinase 48 L (55-170) U/L CK-MB (CK-2) 2.8 H* (0.0-2.4) ng/mL CK-MB (CK-2) Rel Index 5.8 Troponin I 0.033 (0.000-0.034) ng/mL Total Protein 4.7 L (6.3-8.2) g/dL Albumin 2.7 L (3.5-5.0) g/dL Urine Color Urine Appearance (Clear) Urine pH (5.0-8.0) Ur Specific [place] (1.001-1.035) Urine Protein (Negative) Urine Glucose (UA) (Negative) Urine Ketones (Negative) Urine Blood (Negative) Urine Nitrite (Negative) Urine Bilirubin (Negative) Urine Urobilinogen (<2.0) mg/dL Ur Leukocyte Esterase (Negative) Urine RBC (0-5) /hpf 06/26/17 06/26/17 06/26/17 Range/Units 16:39 16:39 16:39 WBC (3.8-10.6) k/uL RBC (4.30-5.90) m/uL Hgb (13.0-17.5) gm/dL Hct (39.0-53.0) % MCV (80.0-100.0) fL MCH (25.0-35.0) pg MCHC (31.0-37.0) g/dL RDW (11.5-15.5) % Plt Count (150-450) k/uL Neutrophils % % Lymphocytes % % Monocytes % % Eosinophils % % Basophils % % Neutrophils # (1.3-7.7) k/uL Lymphocytes # (1.0-4.8) k/uL Monocytes # (0-1.0) k/uL Eosinophils # (0-0.7) k/uL Basophils # (0-0.2) k/uL Hypochromasia PT 10.5 (9.0-12.0) sec INR 1.0 (<1.2) APTT 26.8 (22.0-30.0) sec Sodium (137-145) mmol/L Potassium (3.5-5.1) mmol/L Chloride (98-107) mmol/L Carbon Dioxide (22-30) mmol/L Anion Gap mmol/L BUN (9-20) mg/dL Creatinine (0.66-1.25) mg/dL Est GFR (MDRD) Af Amer (>60 ml/min/1.73 sqM) Est GFR (MDRD) Non-Af (>60 ml/min/1.73 sqM) Glucose (74-99) mg/dL Plasma Lactic Acid [place] 1.5 (0.7-2.0) mmol/L Calcium (8.4-10.2) mg/dL Phosphorus (2.5-4.5) mg/dL Magnesium (1.6-2.3) mg/dL Total Bilirubin (0.2-1.3) mg/dL AST (17-59) U/L ALT (21-72) U/L Alkaline Phosphatase (38-126) U/L Total Creatine Kinase (55-170) U/L CK-MB (CK-2) (0.0-2.4) ng/mL CK-MB (CK-2) Rel Index Troponin I (0.000-0.034) ng/mL Total Protein (6.3-8.2) g/dL Albumin (3.5-5.0) g/dL Urine Color Yellow Urine Appearance Clear (Clear) Urine pH 5.5 (5.0-8.0) Ur Specific [place] 1.014 (1.001-1.035) Urine Protein 1+ H (Negative) Urine Glucose (UA) Negative (Negative) Urine Ketones Negative (Negative) Urine Blood Negative (Negative) Urine Nitrite Negative (Negative) Urine Bilirubin Negative (Negative) Urine Urobilinogen <2.0 (<2.0) mg/dL Ur Leukocyte Esterase Negative (Negative) Urine RBC 1 (0-5) /hpf - Radiology Data Radiology results: report reviewed (Is negative for acute disease), image reviewed Disposition Clinical Impression: Altered mental status, Delirium due to general medical condition, Dehydration Disposition: ADMITTED IP TO THIS [facility] Condition: Fair Referrals: None,Stated [Primary Care Provider] - 1-2 days
[2017-06-26 17:01] LABS: Basophils % (A) 0 %; CH 28.8; CHCM 30.6; Eosinophils # (A) 0.2 k/uL (0-0.7); Eosinophils % (A) 2 %; HDW 2.64; Hypochromasia Moderate; Luc # (Auto) 0.13; Luc % (Auto) 1; Lymphocytes # (A) 1.1 k/uL (1.0-4.8); Lymphocytes % (A) 10 %; MCH 29.7 pg (25.0-35.0); MCHC 31.6 g/dL (31.0-37.0); Monocytes # (A) 0.6 k/uL (0-1.0); Monocytes % (A) 5 %; Neutrophils % (A) 81 %; RBC 4.04 m/uL (4.30-5.90); RDW 14.1 % (11.5-15.5); WBC 11.1 k/uL (3.8-10.6); WBC (Perox) 11.42
[2017-06-26 17:04] LABS: Appearance,Urine Clear (Clear); Bilirubin,Urine Negative (Negative); Glucose,Urine (UA) Negative (Negative); Ketones,Urine Negative (Negative); Leukocyte Esterase,Urine Negative (Negative); Nitrite,Urine Negative (Negative); PH, Urine 5.5 (5.0-8.0); Particle Count 6640; Protein,Urine 1+ (Negative); RBC,Urine 1 /hpf (0-5); Specific Gravity,Urine 1.014 (1.001-1.035); UA Billing (MACRO vs. MICRO) MICRO; Urobilinogen,Urine <2.0 mg/dL (<2.0)
[2017-06-26 17:09] LABS: Partial Thromboplastin Time 26.8 sec (22.0-30.0); Prothrombin Time 10.5 sec (9.0-12.0)
[2017-06-26 17:11] LABS: Calcium 8.9 mg/dL (8.4-10.2); Magnesium 1.6 mg/dL (1.6-2.3); Phosphorous 3.8 mg/dL (2.5-4.5); Potassium 4.2 mmol/L (3.5-5.1); Total Bilirubin 0.5 mg/dL (0.2-1.3); Total Protein 4.7 g/dL (6.3-8.2)
[2017-06-26 17:41] LABS: Troponin I 0.033 ng/mL (0.000-0.034)
[2017-06-26 17:43] LABS: Creatine Kinase MB 2.8 ng/mL (0.0-2.4)
--- NOTE | 2017-06-26 18:12 | XR ---
EXAMINATION TYPE: XR chest 2V DATE OF EXAM: 06/26/2017 COMPARISON: 04/11/2017 HISTORY: Weakness TECHNIQUE: Frontal and lateral views of the chest are obtained. FINDINGS: There is elevated right diaphragm with interposition of the hepatic flexure of the colon. There is gas-filled right colon. There is no heart failure. Lungs are clear of consolidation. Thoraci c aorta is atheromatous. IMPRESSION: No active cardiopulmonary disease. No heart failure. No significant change compared to o ld exam.
[2017-06-26] MEDS ORDERED: HYDROcodone/APAP 5-325MG 1 EACH TAB PO PRN (21:22)
[2017-06-26] MEDS ORDERED: ACETAMINOPHEN TAB 325 MG TAB PO PRN (21:22)
[2017-06-26] MEDS ORDERED: SODIUM CHLORIDE 0.9% 1,000 ML with POTASSIUM CHLORIDE 20 MEQ, MVI, ADULT NO.4 WITH VIT ... IV SCH ×5 (21:45)
[2017-06-27] MEDS: LEVOTHYROXINE 125 MCG TAB PO SCH (06:16)
[2017-06-27] MEDS: IPRATROPIUM-ALBUTEROL 3 ML NEB INHALATION SCH ×4 (07:27→19:50)
[2017-06-27] MEDS: SYMBICORT 80-4.5 MCG INHALER INHALATION SCH ×2 (07:28→19:50)
[2017-06-27 09:10] LABS: Basophils # (A) 0.1 k/uL (0-0.2); Basophils % (A) 1 %; CH 29.3; CHCM 29.8; Eosinophils # (A) 0.5 k/uL (0-0.7); Eosinophils % (A) 4 %; HCT 38.2 % (39.0-53.0); HDW 2.54; HGB 11.2 gm/dL (13.0-17.5); Hypochromasia Marked; Luc # (Auto) 0.11; Luc % (Auto) 1; Lymphocytes # (A) 1.5 k/uL (1.0-4.8); Lymphocytes % (A) 11 %; MCH 28.9 pg (25.0-35.0); MCHC 29.3 g/dL (31.0-37.0); MCV 98.7 fL (80.0-100.0); Mean Platelet Volume 8.6; Monocytes # (A) 0.5 k/uL (0-1.0); Monocytes % (A) 4 %; Neutrophils # (A) 10.2 k/uL (1.3-7.7); Neutrophils % (A) 80 %; RBC 3.87 m/uL (4.30-5.90); RDW 14.7 % (11.5-15.5); WBC 12.9 k/uL (3.8-10.6); WBC (Perox) 13.12
[2017-06-27 09:23] LABS: Calcium 8.4 mg/dL (8.4-10.2); Potassium 4.3 mmol/L (3.5-5.1)
[2017-06-27] MEDS: ENOXAPARIN 30 MG/0.3 ML SYRINGE SQ SCH (09:45)
[2017-06-27] MEDS: MEMANTINE 10 MG TAB PO SCH ×2 (09:45→21:33)
[2017-06-27] MEDS: ASPIRIN 81 MG CHEW PO SCH (09:45)
[2017-06-27] MEDS: DULoxetine HCL 60 MG CAPSULE.DR PO SCH (09:45)
--- NOTE | 2017-06-27 10:44 | HP ---
DATE OF SERVICE: 06/26/2017 Chief complaints are change in mental status and weakness. HISTORY OF PRESENT ILLNESS: This 87-year-old gentleman with a past medical history of multiple medical problems including COPD, CVA, hypertension, memory impairment, history of hypothyroidism, history of hernia repair being followed by Dr. Santoyo in the outpatient setting, recently admitted with fracture and the patient went to [facility] and patient improved significantly and subsequently patient was at home over 2 weeks and according to the daughter , the patient was doing really good, but today the patient because confused and patient has diminished for the last couple of days and patient was taken to [facility] for further evaluation and treatment. The evaluation in the ER showed elevated WBC, UA was not unremarkable. Creatinine was 1.83, dehydration was suspected and patient admitted for further evaluation and treatment. A chest x-ray was done. It showed no active pulmonary changes. The patient is confused, unable to give history. Most of the information is taken from my discussion with the staff and as well as review of the chart and discussion with the ER physician. PAST MEDICAL HISTORY: History of COPD, history of myocardial infarction, history of DJD, history of pneumonia. Medications prior to admission include, home medications are: 1. Multivitamin 1 p.o. daily. 2. Singulair 10 mg q.h.s. 3. Calmoseptine 1 application b.i.d. 4. Biofreeze 1 application b.i.d. 5. Namenda 10 mg p.o. b.i.d. 6. Synthroid 125 mcg p.o. daily. 7. DuoNeb q.i.d. 8. Cash 1 tablet q.4 p.r.n. 9. Breo Ellipta 1 puff daily. 10. Cymbalta 60 mg p.o. daily. 11. Ecotrin 81 mg p.o. daily. 12. Tylenol 650 q.6 p.r.n. Allergies are none. FAMILY HISTORY: History of COPD, CVA, TIA. SOCIAL HISTORY: Previous history of smoking, occasional alcohol intake. REVIEW OF SYSTEMS: ENT: No diminished hearing, diminished vision. CARDIOVASCULAR SYSTEM: No angina, palpitations. RESPIRATORY: As mentioned earlier. GI: No nausea. : No dysuria. NERVOUS SYSTEM: As mentioned earlier. ALLERGY/IMMUNOLOGY: No asthma or hayfever. MUSCULOSKELETAL: As mentioned earlier. HEMATOLOGY: No history of anemia. ENDOCRINE: As mentioned earlier. CONSTITUTIONAL: As mentioned earlier. DERMATOLOGY: Negative. RHEUMATOLOGY: Negative. PSYCHIATRY: As mentioned earlier. PHYSICAL EXAMINATION: Patient is alert and oriented x2. Pulse 65, blood pressure 120/69, respirations 18, temperature is 98.4, pulse ox 94% on 2 L. CHEST: Conjunctivae normal. Oral mucosa dry. NECK: No jugular venous distension. CARDIOVASCULAR SYSTEM: S1, S2, muffled. RESPIRATORY: Breath sounds diminished at the bases. A few rhonchi, no crackles. ABDOMEN: Soft, nontender. No mass palpable. LEGS: No edema, no swelling. NERVOUS SYSTEM: Higher functions as mentioned earlier. Moves all 4 limbs. No focal deficits. LYMPHATICS: No ulcer, rash or bleeding. Labs are WBC is 11.8, hemoglobin is 12, creatinine is 1.83. ASSESSMENT: 1. Acute dehydration, possibly secondary to prerenal factors with acute renal failure, diminished p.o. intake. 2. Change in mental status with acute metabolic encephalopathy. 3. Rule out deep venous thrombosis. 4. Increased WBC. 5. Chronic obstructive pulmonary disease. 6. Cerebrovascular accident/transient ischemic attack. 7. Degenerative joint disease. 8. History of recent left hip fracture. RECOMMENDATION: Recommend to continue with the current medication, continue with the symptomatic treatment. Otherwise, continue the hydration. Repeat labs. Would also recommend a PT, OT evaluation. Continue the home medications. IV fluids. Will obtain cultures. Chest x-ray report reviewed. Prognosis guarded. Discussed with the family and will also obtain Social Work consult also. See orders for further details. Further recommendations to follow. Prognosis guarded. MTDD
[2017-06-27] MEDS: MULTIVITAMINS, THERA 1 EACH TAB PO SCH (13:35)
[2017-06-27] MEDS: MENTHOL-ZINC OXIDE OINT 113 GM TUBE TOPICAL SCH ×2 (13:35→21:55)
[2017-06-27] MEDS: METHYL SALICYLATE/MENTHOL CREAM 5 OZ TOPICAL SCH ×2 (13:35→21:55)
--- NOTE | 2017-06-27 14:05 | XR ---
EXAMINATION TYPE: AP view pelvis and 2 views each hip DATE OF EXAM: 06/27/2017 COMPARISON: 04/15/2017 HISTORY: 87-year-old male with pain FINDINGS: Degenerative changes in the lower lumbar spine. There is [id number] axial joint space narrowing within the right hip. On the left, there is a left hip hemiarthroplasty with apparent loss of the acetabular articular cart ilage. The femoral stem component appears well-seated without periprosthetic fracture. No acute fracture, subluxation, or dislocation. IMPRESSION: 1. [id number] right hip osteoarthrosis with axial joint space loss. 2. Uncomplicated appearance to the left hip hemiarthroplasty. However, note degenerative loss of the acetabular articular cartilage suggesting nearly metal on bone articulation.
[2017-06-27] MEDS: SODIUM CHLORIDE 0.9% 1,000 ML IV SCH (17:03)
[2017-06-27 17:57] LABS: Amorphous Sediment,Urine Occasional /hpf; Appearance,Urine Clear (Clear); Bilirubin,Urine Negative (Negative); Glucose,Urine (UA) Negative (Negative); Ketones,Urine Negative (Negative); Leukocyte Esterase,Urine Negative (Negative); Nitrite,Urine Negative (Negative); PH, Urine 5.5 (5.0-8.0); Particle Count 2629; Protein,Urine 1+ (Negative); Specific Gravity,Urine 1.013 (1.001-1.035); UA Billing (MACRO vs. MICRO) MICRO; Urobilinogen,Urine <2.0 mg/dL (<2.0); WBC,Urine 5 /hpf (0-5)
--- NOTE | 2017-06-27 19:36 | PN ---
DATE OF SERVICE: 06/27/17 This 87-year-old gentleman who was admitted with acute dehydration with possible secondary prerenal factors, also had change in mental status. The patient also had significant history of surgery. According to PT/OT there were some contractures and the patient seems to be having significant difficulty with at this time. Xray was ordered by me which showed mild to moderate hip osteoarthritis and uncomplicated appearance of the left hip hemiarthroplasty also. Right wrist swelling was also complained of. Past medical history reviewed. Review of systems could not be taken. The patient is confused. Current medications are reviewed and include: 1. Tylenol 650 q6h prn. 2. [place] 5 mg po daily. 3. DuoNeb q.i.d. and prn 4. Symbicort 80/4.5 b.i.d. 5. Cymbalta. 6. Lovenox. 7. Synthroid. 8. Namenda. 9. Singulair. 10. Multivitamins. On exam, the patient is conscious, minimally verbal. Pulse is 88. Blood pressure 142/77. Respiratory rate 16. Temperature 97.7. Pulse ox 100% on 4 L. HEENT: Conjunctivae normal. Oral mucosa moist. Neck: No JVD. No carotid bruit. No lymph node enlargement. CARDIOVASCULAR: S1, S2 muffled. No S3, no S4. Respiratory: Breath sounds diminished at the bases. A few scattered rhonchi and crackles. Abdomen nontender, no mass palpable. LEGS: No edema. No swelling. SNUFF BLENDER: Diffusely weak. ( ). LABS: WBC 12.1, hemoglobin 11.2, CO2 16. UA noted. CKMB is 2.8. The chest x-ray shows no acute abnormality. ASSESSMENT: 1. Acute dehydration possibly secondary prerenal factors, acute renal failure with diminished po intake. 2. Change in mental status, acute metabolic encephalopathy. 3. Gait dysfunction. 4. Increased WBC. 5. Degenerative joint disease. 6. History of recent left hip hemiarthroplasty. 7. Chronic obstructive pulmonary disease. 8. History of cerebrovascular accident/transient ischemic attack. 9. FULL CODE. RECOMMENDATIONS AND DISCUSSION: This 87 -year-old gentleman presented with multiple complex medical issues. We will monitor the patient closely. Continue the current medications. Continue symptomatic treatment. Continue IV fluids. Otherwise, I recommend a set of cultures. Otherwise, Guarded prognosis because of multiple medical problems. Further recommendations to follow. See orders for further details. Discussed with the family and staff. GM
[2017-06-27] MEDS: MONTELUKAST 10 MG TAB PO SCH (21:33)
[2017-06-28] MEDS: LEVOTHYROXINE 125 MCG TAB PO SCH (06:25)
[2017-06-28] MEDS: IPRATROPIUM-ALBUTEROL 3 ML NEB INHALATION SCH ×4 (07:20→20:11)
[2017-06-28] MEDS: SYMBICORT 80-4.5 MCG INHALER INHALATION SCH ×2 (07:20→20:11)
[2017-06-28] MEDS: SODIUM CHLORIDE 0.9% 1,000 ML IV SCH ×3 (08:27→22:41)
[2017-06-28 09:06] LABS: Basophils % (A) 0 %; CH 28.6; Eosinophils # (A) 0.5 k/uL (0-0.7); Eosinophils % (A) 5 %; HCT 35.6 % (39.0-53.0); HDW 2.66; HGB 10.9 gm/dL (13.0-17.5); Hypochromasia Marked; Luc # (Auto) 0.09; Luc % (Auto) 1; Lymphocytes # (A) 1.5 k/uL (1.0-4.8); Lymphocytes % (A) 16 %; MCH 29.3 pg (25.0-35.0); MCHC 30.7 g/dL (31.0-37.0); MCV 95.5 fL (80.0-100.0); Mean Platelet Volume 7.6; Monocytes # (A) 0.6 k/uL (0-1.0); Monocytes % (A) 7 %; Neutrophils # (A) 6.5 k/uL (1.3-7.7); Neutrophils % (A) 71 %; RBC 3.73 m/uL (4.30-5.90); RDW 14.2 % (11.5-15.5); WBC 9.3 k/uL (3.8-10.6); WBC (Perox) 9.52
[2017-06-28] MEDS: METHYL SALICYLATE/MENTHOL CREAM 5 OZ TOPICAL SCH ×2 (09:31→20:19)
[2017-06-28] MEDS: MENTHOL-ZINC OXIDE OINT 113 GM TUBE TOPICAL SCH ×2 (09:31→20:19)
[2017-06-28] MEDS: ENOXAPARIN 30 MG/0.3 ML SYRINGE SQ SCH (09:32)
[2017-06-28] MEDS: DULoxetine HCL 60 MG CAPSULE.DR PO SCH (09:32)
[2017-06-28] MEDS: ASPIRIN 81 MG CHEW PO SCH (09:33)
[2017-06-28] MEDS: MEMANTINE 10 MG TAB PO SCH ×2 (09:33→20:19)
[2017-06-28 10:01] LABS: Calcium 8.5 mg/dL (8.4-10.2); Potassium 4.3 mmol/L (3.5-5.1)
[2017-06-28] MEDS: MULTIVITAMINS, THERA 1 EACH TAB PO SCH (12:15)
[2017-06-28] MEDS: MONTELUKAST 10 MG TAB PO SCH (20:19)
[2017-06-29] MEDS: LEVOTHYROXINE 125 MCG TAB PO SCH (05:45)
[2017-06-29] MEDS: SYMBICORT 80-4.5 MCG INHALER INHALATION SCH ×2 (07:21→20:40)
[2017-06-29] MEDS: IPRATROPIUM-ALBUTEROL 3 ML NEB INHALATION SCH ×4 (07:21→20:40)
--- NOTE | 2017-06-29 07:25 | PN ---
DATE OF SERVICE: 06/28/2017 This 87-year-old gentleman who was admitted with acute dehydration with possible secondary to prerenal factors also had a change in mental status. The patient had diminished p.o. intake. The patient at this time. The patient recently completed a course of rehabilitation elsewhere. Evaluation by orthopedic surgery is undergoing. The initial x-rays show no obvious dislocation of fracture at this time. PAST MEDICAL HISTORY: Reviewed. REVIEW OF SYSTEMS: Could not be taken, the patient is confused. Current medications are reviewed and include: 1. Tylenol 650 q.6 p.r.n. 2. [place] 5 mg q.4 p.r.n. 3. DuoNeb q.i.d. and p.r.n. 4. Aspirin. 5. Symbicort 80/4.5 two puffs b.i.d. 6. Cymbalta. 7. Lovenox 40 mg subcu daily. 8. Synthroid. 9. Namenda. 10. Singulair. 11. Multivitamins. PHYSICAL EXAM: The patient is conscious, but confused. Pulse is 79, blood pressure 142/81, respirations 16, temperature 98.2, pulse ox 100% on 2 L. HEENT: Conjunctivae normal. Oral mucosa moist. NECK: No jugular venous distention. No carotid bruit. No lymph node enlargement. CARDIOVASCULAR: S1 and S2 muffled. RESPIRATORY: Breath sounds diminished at the bases. Scattered rhonchi. No crackles. ABDOMEN: Soft and nontender. No mass palpable. LEGS: No edema. NERVOUS SYSTEM: Higher function as mentioned. Moves all 4 limbs. No focal deficits. LYMPHATICS: No lymphadenopathy of the neck, axillae or groin. SKIN: No ulcers, rashes, bleeding. NERVOUS SYSTEM: Diffusely weak. LABS: WBC 9.3, hemoglobin 10.9. Creatinine is 1.6. ASSESSMENT: 1. Acute dehydration, possibly secondary to prerenal factors, diminished p.o. intake. 2. Acute renal failure and acute tubular necrosis. 3. Change in mental status. 4. Acute metabolic encephalopathy. 5. Gait dysfunction. 6. Increased WBC. 7. Degenerative joint disease. 8. History of recent left hip hemiarthroplasty. 9. Chronic obstructive pulmonary disease. 10. History of cerebrovascular accident and transient ischemic attack. 11. FULL CODE. RECOMMENDATIONS AND DISCUSSION: Recommend to continue current medications. Continue with monitoring and symptomatic treatment. Otherwise, at this time I would recommend to continue with IV fluids. Monitor creatinine closely. Other than that, I would recommend repeat labs. PT, OT evaluation. Possible ECF rehab. Orthopedic consultation. Prognosis guarded. Further recommendation to follow. See orders for further details. MTDD
[2017-06-29 07:43] LABS: Basophils % (A) 1 %; CH 29.4; CHCM 30.6; Eosinophils # (A) 0.4 k/uL (0-0.7); Eosinophils % (A) 7 %; HCT 33.4 % (39.0-53.0); HDW 2.61; HGB 10.2 gm/dL (13.0-17.5); Hypochromasia Moderate; Luc # (Auto) 0.11; Luc % (Auto) 2; Lymphocytes # (A) 1.2 k/uL (1.0-4.8); Lymphocytes % (A) 19 %; MCH 29.6 pg (25.0-35.0); MCHC 30.7 g/dL (31.0-37.0); MCV 96.3 fL (80.0-100.0); Mean Platelet Volume 8.3; Monocytes # (A) 0.4 k/uL (0-1.0); Monocytes % (A) 6 %; Neutrophils # (A) 4.3 k/uL (1.3-7.7); Neutrophils % (A) 66 %; RBC 3.47 m/uL (4.30-5.90); WBC 6.5 k/uL (3.8-10.6)
[2017-06-29 08:08] LABS: Anion Gap 9 mmol/L; Blood Urea Nitrogen 25 mg/dL (9-20); Calcium 8.7 mg/dL (8.4-10.2); Carbon Dioxide 15 mmol/L (22-30); Chloride 118 mmol/L (98-107); Glucose 80 mg/dL (74-99); Non-African American GFR(MDRD) >60 (>60 ml/min/1.73 sqM); Potassium 4.1 mmol/L (3.5-5.1); Sodium 142 mmol/L (137-145)
[2017-06-29] MEDS: DULoxetine HCL 60 MG CAPSULE.DR PO SCH (09:49)
[2017-06-29] MEDS: MEMANTINE 10 MG TAB PO SCH ×2 (09:49→21:04)
[2017-06-29] MEDS: ASPIRIN 81 MG CHEW PO SCH (09:49)
[2017-06-29] MEDS: ENOXAPARIN 40 MG/0.4 ML SYRINGE SQ SCH (09:49)
[2017-06-29] MEDS: METHYL SALICYLATE/MENTHOL CREAM 5 OZ TOPICAL SCH ×2 (09:50→21:05)
[2017-06-29] MEDS: MENTHOL-ZINC OXIDE OINT 113 GM TUBE TOPICAL SCH ×2 (09:50→21:05)
[2017-06-29] MEDS: MULTIVITAMINS, THERA 1 EACH TAB PO SCH (09:51)
[2017-06-29] MEDS: MELOXICAM 7.5 MG TAB PO SCH (11:07)
[2017-06-29] MEDS: SODIUM CHLORIDE 0.9% 1,000 ML IV SCH ×2 (13:44→23:05)
--- NOTE | 2017-06-29 16:16 | P.CNOR ---
History of Present Illness - [facility] Consult date: 06/29/17 Consult reason: joint pain (Right wrist) History of present illness: This is an 87-year-old male admitted with mental status changes. He has history of hemiarthroplasty of the left hip within the past few months. He's had no problems regarding the hip. He reportedly has complained of pain about the right wrist with movement. The patient has history of dementia and is a poor historian. He is not very cooperative on today's exam. There is no documented history of fever or chills. Patient's white count was slightly elevated upon admission is normal now. He does have history of gout. Past Medical History Past Medical History: Cancer, COPD, CVA/TIA, Hypertension, Memory Impairment, Myocardial Infarction ([place]), Osteoarthritis (OA), Pneumonia, Syncope, Thyroid Disorder Additional Past Medical History / Comment(s): pt is rt hand dominant.Gout; Skin Ca, uti-ecoli, bradycardia, had pne vaccine after age 63-not sure of date, bronchitis, cahto, poor historian, past fall/closed head injury lt femoral neck fx ,constipation, past hx stated peptic ulcer .eczema Last Myocardial Infarction Date:: 2013 History of Any Multi-Drug Resistant Organisms: None Reported Past Surgical History: Hernia Repair, Orthopedic Surgery Additional Past Surgical History / Comment(s): Removal of skin ca lesions, aaron cataract sx,colonoscopy, i&d rt knee x2, sinus sx, lt hip hemiarthroplasty. FAMILY UNSURE IF PATIENT HAD HEART CATHERIZATION Past Anesthesia/Blood Transfusion Reactions: No Reported Reaction Smoking Status: Former smoker - Past Family History Mother Family Medical History: COPD, CVA/TIA Additional Family Medical History / Comment(s): AGE 49 Father Family Medical History: No Reported History Additional Family Medical History / Comment(s): " FROM OLD AGE" Medications and Allergies Home Medications Medication Instructions Recorded Confirmed Type DULoxetine HCL [Cymbalta] 60 mg PO DAILY 05/13/15 06/26/17 History Montelukast [Singulair] 10 mg PO HS 05/13/15 06/26/17 History Aspirin EC [Ecotrin Low Dose] 81 mg PO DAILY 06/26/17 06/26/17 History Fluticasone/Vilanterol [Breo 1 puff INHALATION RT-DAILY 06/26/17 06/26/17 History Ellipta 100-25 Mcg Inhaler] HYDROcodone/APAP 5-325MG [[place] 1 tab PO Q4H PRN 06/26/17 06/26/17 History 5-325] Levothyroxine Sodium [Synthroid] 125 mcg PO DAILY 06/26/17 06/26/17 History Memantine [Namenda] 10 mg PO BID 06/26/17 06/26/17 History Menthol [Biofreeze] 1 applic TOPICAL BID 06/26/17 06/26/17 History Menthol/Zinc Oxide [Calmoseptine 1 applic TOPICAL BID 06/26/17 06/26/17 History Ointment] Multivitamins, Thera [Multivitamin 1 tab PO DAILY@1200 06/26/17 06/26/17 History (formulary)] Allergies Allergy/AdvReac Type Severity Reaction Status Date / Time No Known Allergies Allergy Verified 06/26/17 20:31 Physical Examination This is an 87-year-old male in no acute distress. I am able to awaken him but he is confused. He is a poor historian and difficult to examine. Exam of the head neck reveal no obvious deformity. There is no pain palpation about the cervical spine or paraspinal musculature. Exam the upper extremities reveals no obvious deformity. There is mild soft tissue swelling and 1+ joint effusion noted to the right wrist. There is no erythema or ecchymosis or increased warmth to the area. I am able to flex and extend the wrist with no obvious pain response. There is no obvious pain with palpation about the wrist. Exam of the left wrist reveals mild swelling with a 1+ joint effusion as well. There is no tenderness about the left wrist. He has full passive motion with no obvious pain response. Exam the lower extremities unremarkable. He has well-healed incision to the left hip. There is no pain with motion of the hips. Pedal pulses are +2/4. Neurovascular status lower extremities is grossly intact. Results X-rays of the pelvis and hip reveal a hemiarthroplasty in good position and alignment. No evidence of loosening. - Labs Labs: Abnormal Lab Results - Last 24 Hours (Table) 06/29/17 06/29/17 Range/Units 07:14 07:14 RBC 3.47 L (4.30-5.90) m/uL Hgb 10.2 L (13.0-17.5) gm/dL Hct 33.4 L (39.0-53.0) % MCHC 30.7 L (31.0-37.0) g/dL Chloride 118 H (98-107) mmol/L Carbon Dioxide 15 L (22-30) mmol/L BUN 25 H (9-20) mg/dL Microbiology - Last 24 Hours (Table) 06/27/17 17:16 Blood Culture - Preliminary Blood No Growth after 24 hours H & H 06/26/17 06/27/17 06/28/17 Range/Units 16:39 08:04 08:14 Hgb 12.0 L 11.2 L 10.9 L (13.0-17.5) gm/dL Hct 38.0 L 38.2 L 35.6 L (39.0-53.0) % 06/29/17 Range/Units 07:14 Hgb 10.2 L (13.0-17.5) gm/dL Hct 33.4 L (39.0-53.0) % Coagulation 06/26/17 Range/Units 16:39 INR 1.0 (<1.2) Result Diagrams: 06/29/17 07:14 06/29/17 07:14 Assessment and Plan (1) Altered mental status Status: Acute (2) Right wrist pain Status: Acute (3) History of acute gouty arthritis Status: Acute (4) Status post hip hemiarthroplasty Status: Acute Plan: The clinical findings are discussed the patient and his nurse. He seems to be improved since admission. I cannot elicit much pain to the wrist with motion. I have discussed the case with Dr. Dwyer who agrees that there is no indication for aspiration of the wrist at this time. I recommend treatment with anti- inflammatory if no contraindications. We'll continue to follow.
[2017-06-29] MEDS: MONTELUKAST 10 MG TAB PO SCH (21:05)
[2017-06-30] MEDS: LEVOTHYROXINE 125 MCG TAB PO SCH (06:31)
[2017-06-30 08:41] LABS: Basophils # (A) 0.1 k/uL (0-0.2); Basophils % (A) 1 %; CH 28.6; CHCM 30.5; Eosinophils # (A) 0.6 k/uL (0-0.7); Eosinophils % (A) 8 %; HCT 34.8 % (39.0-53.0); HGB 10.6 gm/dL (13.0-17.5); Hypochromasia Moderate; Luc # (Auto) 0.12; Luc % (Auto) 2; Lymphocytes # (A) 1.3 k/uL (1.0-4.8); Lymphocytes % (A) 20 %; MCH 28.6 pg (25.0-35.0); MCHC 30.5 g/dL (31.0-37.0); MCV 93.8 fL (80.0-100.0); Mean Platelet Volume 8.6; Monocytes # (A) 0.5 k/uL (0-1.0); Monocytes % (A) 7 %; Neutrophils # (A) 4.2 k/uL (1.3-7.7); Neutrophils % (A) 63 %; RBC 3.71 m/uL (4.30-5.90); RDW 14.2 % (11.5-15.5); WBC 6.7 k/uL (3.8-10.6); WBC (Perox) 6.87
[2017-06-30] MEDS: SYMBICORT 80-4.5 MCG INHALER INHALATION SCH ×2 (08:48→20:02)
[2017-06-30] MEDS: IPRATROPIUM-ALBUTEROL 3 ML NEB INHALATION SCH ×4 (08:48→20:01)
[2017-06-30 09:28] LABS: Anion Gap 7 mmol/L; Blood Urea Nitrogen 18 mg/dL (9-20); Calcium 8.7 mg/dL (8.4-10.2); Carbon Dioxide 20 mmol/L (22-30); Chloride 116 mmol/L (98-107); Glucose 84 mg/dL (74-99); Non-African American GFR(MDRD) >60 (>60 ml/min/1.73 sqM); Potassium 3.7 mmol/L (3.5-5.1); Sodium 143 mmol/L (137-145)
[2017-06-30] MEDS: METHYL SALICYLATE/MENTHOL CREAM 5 OZ TOPICAL SCH ×2 (10:32→21:29)
[2017-06-30] MEDS: MEMANTINE 10 MG TAB PO SCH ×2 (10:32→21:29)
[2017-06-30] MEDS: DULoxetine HCL 60 MG CAPSULE.DR PO SCH (10:32)
[2017-06-30] MEDS: MENTHOL-ZINC OXIDE OINT 113 GM TUBE TOPICAL SCH ×2 (10:32→21:29)
[2017-06-30] MEDS: ASPIRIN 81 MG CHEW PO SCH (10:32)
[2017-06-30] MEDS: ENOXAPARIN 40 MG/0.4 ML SYRINGE SQ SCH (10:33)
[2017-06-30] MEDS: MULTIVITAMINS, THERA 1 EACH TAB PO SCH (10:33)
[2017-06-30] MEDS: MELOXICAM 7.5 MG TAB PO SCH (10:33)
[2017-06-30] MEDS: SODIUM CHLORIDE 0.9% 1,000 ML IV SCH (10:34)
[2017-06-30 12:50] VITALS: BMI 24.3
--- NOTE | 2017-06-30 15:38 | P.PN ---
Subjective This is a 87-year-old gentleman with the recent admission to a care home was sent back in with change in mental status. The ration baseline mentation is unknown at this time. Patient was noted to have an acute kidney injury this is attribute it to prerenal etiology. Patient was given IV fluids is improved appropriately Patient has been having aches in multiple joints Orthopedics was counseled that regarding wrist ache. There is some swelling that is noted on the left side At this time patient denies having any complaints states that he is next to his house he is confused Patient's renal function appears to be appropriately improved Objective - Vital Signs Vital signs: Vital Signs Temp 98.4 F 06/30/17 15:00 Pulse 71 06/30/17 15:00 Resp 16 06/30/17 15:00 BP 163/83 06/30/17 15:00 Pulse Ox 97 06/30/17 15:00 Intake & Output 06/29/17 06/30/17 06/30/17 18:59 06:59 18:59 Intake Total 120 Balance 120 Weight 72.575 kg Intake: Oral 120 Other: Voiding Method Diaper Diaper Incontinent Incontinent # Voids 1 3 1 # Bowel Movements 1 - Exam Gen. appearance alert to self Neck is supple no JVD Lungs good air movement clear to auscultation no rhonchi wheezing or crackles Abdomen is soft nontender no organomegaly Lower extremities no edema [employer] moves all 4 extremities confused - Labs CBC & Chem 7: 06/30/17 08:23 06/30/17 08:23 Labs: Abnormal Lab Results - Last 24 Hours (Table) 06/30/17 06/30/17 Range/Units 08:23 08:23 RBC 3.71 L (4.30-5.90) m/uL Hgb 10.6 L (13.0-17.5) gm/dL Hct 34.8 L (39.0-53.0) % MCHC 30.5 L (31.0-37.0) g/dL Chloride 116 H (98-107) mmol/L Carbon Dioxide 20 L (22-30) mmol/L Microbiology - Last 24 Hours (Table) 06/27/17 17:16 Blood Culture - Preliminary Blood No Growth after 48 hours Assessment and Plan Plan: #1 acute kidney injury secondary to prerenal azotemia #2 acute metabolic encephalopathy #3 degenerative joint disease per graph #4 COPD per #5 history of CVA #6 hypothyroidism #7 dementia #8 acute conjunctivitis Plan Continue ongoing care. We'll start the patient on ciprofloxacin eyedrops Patient's renal functions improved she will likely be discharged back to an NH.
[2017-06-30] MEDS: CIPROFLOXACIN 0.3% OPHTH SOLN 2.5 ML BTL BOTH EYES SCH ×2 (16:10→21:29)
[2017-06-30] MEDS: MONTELUKAST 10 MG TAB PO SCH (21:29)
[2017-07-01] MEDS: CIPROFLOXACIN 0.3% OPHTH SOLN 2.5 ML BTL BOTH EYES SCH ×6 (00:26→21:10)
[2017-07-01] MEDS: SODIUM CHLORIDE 0.9% 1,000 ML IV SCH ×2 (01:45→14:59)
[2017-07-01] MEDS: LEVOTHYROXINE 125 MCG TAB PO SCH (06:05)
[2017-07-01] MEDS: IPRATROPIUM-ALBUTEROL 3 ML NEB INHALATION SCH ×4 (07:30→20:43)
[2017-07-01] MEDS: SYMBICORT 80-4.5 MCG INHALER INHALATION SCH ×2 (07:38→20:43)
[2017-07-01] MEDS: MELOXICAM 7.5 MG TAB PO SCH (08:19)
[2017-07-01] MEDS: MEMANTINE 10 MG TAB PO SCH ×2 (08:19→21:09)
[2017-07-01] MEDS: DULoxetine HCL 60 MG CAPSULE.DR PO SCH (08:20)
[2017-07-01] MEDS: METHYL SALICYLATE/MENTHOL CREAM 5 OZ TOPICAL SCH ×2 (08:20→21:09)
[2017-07-01] MEDS: MENTHOL-ZINC OXIDE OINT 113 GM TUBE TOPICAL SCH ×2 (08:20→21:09)
[2017-07-01] MEDS: ASPIRIN 81 MG CHEW PO SCH (08:20)
[2017-07-01] MEDS: ENOXAPARIN 40 MG/0.4 ML SYRINGE SQ SCH (08:20)
[2017-07-01 08:38] LABS: Basophils # (A) 0.1 k/uL (0-0.2); Basophils % (A) 1 %; CH 29.3; CHCM 30.9; Eosinophils # (A) 0.6 k/uL (0-0.7); Eosinophils % (A) 8 %; HCT 35.5 % (39.0-53.0); HDW 2.77; HGB 10.6 gm/dL (13.0-17.5); Hypochromasia Moderate; Luc # (Auto) 0.11; Luc % (Auto) 1; Lymphocytes # (A) 1.5 k/uL (1.0-4.8); Lymphocytes % (A) 19 %; MCH 28.5 pg (25.0-35.0); MCV 95.2 fL (80.0-100.0); Mean Platelet Volume 8.2; Monocytes # (A) 0.5 k/uL (0-1.0); Monocytes % (A) 6 %; Neutrophils # (A) 4.9 k/uL (1.3-7.7); Neutrophils % (A) 65 %; RBC 3.73 m/uL (4.30-5.90); RDW 14.8 % (11.5-15.5); WBC 7.6 k/uL (3.8-10.6); WBC (Perox) 7.86
[2017-07-01 08:50] LABS: Anion Gap 6 mmol/L; Blood Urea Nitrogen 14 mg/dL (9-20); Calcium 8.7 mg/dL (8.4-10.2); Carbon Dioxide 22 mmol/L (22-30); Chloride 111 mmol/L (98-107); Glucose 79 mg/dL (74-99); Non-African American GFR(MDRD) >60 (>60 ml/min/1.73 sqM); Potassium 3.7 mmol/L (3.5-5.1); Sodium 139 mmol/L (137-145)
[2017-07-01 09:19] LABS: Manual Review Performed
--- NOTE | 2017-07-01 10:00 | P.PN ---
Subjective Principal diagnosis: Right wrist pain. Status post hemiarthroplasty left hip. This is an 87-year-old gentleman who we are following regarding his left hip hemiarthroplasty. He is also was complaining of right wrist pain. According to nursing he is not complained of wrist pain recently. He is confused and difficult to awaken this morning. Objective - Vital Signs Vital signs: Vital Signs Temp 99.0 F 07/01/17 07:00 Pulse 80 07/01/17 07:42 Resp 20 07/01/17 07:00 BP 154/92 07/01/17 07:00 Pulse Ox 95 07/01/17 07:00 Intake & Output 06/30/17 07/01/17 07/01/17 18:59 06:59 18:59 Intake Total 120 Balance 120 Weight 72.575 kg Intake: Oral 120 Other: Voiding Method Diaper Diaper Incontinent Incontinent # Voids 1 3 - Exam This is an 87-year-old gentleman in no acute distress. He is resting soundly. I am unable to awaken him easily. Exam of the wrist reveals mild swelling about the right wrist with no erythema. I'm able to move the wrist without obvious pain response. Capillary refill is less than 3 seconds. - Labs CBC & Chem 7: 07/01/17 07:54 07/01/17 07:54 Labs: Abnormal Lab Results - Last 24 Hours (Table) 07/01/17 07/01/17 Range/Units 07:54 07:54 RBC 3.73 L (4.30-5.90) m/uL Hgb 10.6 L (13.0-17.5) gm/dL Hct 35.5 L (39.0-53.0) % MCHC 30.0 L (31.0-37.0) g/dL Chloride 111 H (98-107) mmol/L Microbiology - Last 24 Hours (Table) 06/27/17 17:16 Blood Culture - Preliminary Blood No Growth after 72 hours Assessment and Plan (1) Altered mental status Status: Acute (2) Right wrist pain Status: Acute (3) History of acute gouty arthritis Status: Acute (4) Status post hip hemiarthroplasty Status: Acute Plan: The clinical findings are discussed the patient and his nurse. He seems to be improved since admission. I cannot elicit much pain to the wrist with motion. I have discussed the case with Dr. Dwyer who agrees that there is no indication for aspiration of the wrist at this time. I recommend treatment with anti- inflammatory if no contraindications. He may be discharged from an orthopedic standpoint.
[2017-07-01] MEDS: MULTIVITAMINS, THERA 1 EACH TAB PO SCH (12:41)
--- NOTE | 2017-07-01 19:18 | P.PN ---
Subjective This is a 87-year-old gentleman with the recent admission to a [place] [facility] was sent back in with change in mental status. The ration baseline mentation is unknown at this time. Patient was noted to have an acute kidney injury this is attribute it to prerenal etiology. Patient was given IV fluids is improved appropriately Patient has been having aches in multiple joints Orthopedics was counseled that regarding wrist ache. There is some swelling that is noted on the left side At this time patient denies having any complaints states that he is next to his house he is confused Patient's renal function appears to be appropriately improved 05/31/17 more verbal appropriately answers some questions no other overnight events reported Objective - Vital Signs Vital signs: Vital Signs Temp 98.7 F 07/01/17 15:00 Pulse 78 07/01/17 16:21 Resp 20 07/01/17 15:00 BP 136/76 07/01/17 15:00 Pulse Ox 98 07/01/17 15:00 Intake & Output 07/01/17 07/01/17 07/02/17 06:59 18:59 06:59 Intake Total 600 Output Total 400 Balance 200 Intake: Intake, IV Titration 600 Amount Sodium Chloride 0.9% 1, 600 000 ml @ 75 mls/hr IV . [id number] [facility] Rx#:[id number] Output: Urine 400 Other: Voiding Method Diaper Diaper Incontinent Incontinent # Voids 3 2 - Labs CBC & Chem 7: 07/01/17 07:54 07/01/17 07:54 Labs: Abnormal Lab Results - Last 24 Hours (Table) 07/01/17 07/01/17 Range/Units 07:54 07:54 RBC 3.73 L (4.30-5.90) m/uL Hgb 10.6 L (13.0-17.5) gm/dL Hct 35.5 L (39.0-53.0) % MCHC 30.0 L (31.0-37.0) g/dL Chloride 111 H (98-107) mmol/L Microbiology - Last 24 Hours (Table) 06/27/17 17:16 Blood Culture - Preliminary Blood No Growth after 72 hours Assessment and Plan Plan: #1 acute kidney injury secondary to prerenal azotemia #2 acute metabolic encephalopathy, improving #3 degenerative joint disease per graph #4 COPD per #5 history of CVA #6 hypothyroidism #7 dementia #8 acute conjunctivitis Plan Continue ongoing care. ciprofloxacin eyedrops Patient's renal functions improved discharged back to an NH.
[2017-07-01] MEDS: MONTELUKAST 10 MG TAB PO SCH (21:08)
[2017-07-02] MEDS: CIPROFLOXACIN 0.3% OPHTH SOLN 2.5 ML BTL BOTH EYES SCH ×7 (00:19→23:54)
[2017-07-02] MEDS: SODIUM CHLORIDE 0.9% 1,000 ML IV SCH (06:06)
[2017-07-02] MEDS: LEVOTHYROXINE 125 MCG TAB PO SCH (06:13)
[2017-07-02] MEDS ORDERED: ALBUTEROL NEBULIZED 2.5 MG/3 ML INHALATION PRN (06:32)
[2017-07-02] MEDS ORDERED: FUROSEMIDE 10 MG/ML 4 ML VIAL IV ONE (06:34)
[2017-07-02] MEDS: IPRATROPIUM-ALBUTEROL 3 ML NEB INHALATION SCH ×4 (07:51→21:27)
[2017-07-02] MEDS: SYMBICORT 80-4.5 MCG INHALER INHALATION SCH ×2 (07:52→21:28)
[2017-07-02] MEDS: ASPIRIN 81 MG CHEW PO SCH (08:48)
[2017-07-02] MEDS: DULoxetine HCL 60 MG CAPSULE.DR PO SCH (08:48)
[2017-07-02] MEDS: MELOXICAM 7.5 MG TAB PO SCH (08:48)
[2017-07-02] MEDS: MEMANTINE 10 MG TAB PO SCH ×2 (08:48→21:20)
[2017-07-02] MEDS: ENOXAPARIN 40 MG/0.4 ML SYRINGE SQ SCH (08:48)
[2017-07-02] MEDS: MENTHOL-ZINC OXIDE OINT 113 GM TUBE TOPICAL SCH ×2 (08:50→21:20)
[2017-07-02] MEDS: METHYL SALICYLATE/MENTHOL CREAM 5 OZ TOPICAL SCH ×2 (08:50→21:21)
[2017-07-02] MEDS ORDERED: FUROSEMIDE 10 MG/ML 4 ML VIAL IV STA (09:15)
--- NOTE | 2017-07-02 10:12 | XR ---
EXAMINATION TYPE: XR chest 1V portable DATE OF EXAM: 07/02/2017 COMPARISON: NONE INDICATION: Shortness of breath TECHNIQUE: Single frontal view of the chest is obtained. FINDINGS: The heart size is normal. The pulmonary vasculature is normal. Minimal blunting left costophrenic angle is not excluded. Minimal left pleural effusion may be presen t. Air-filled loops of bowel are evident of the right diaphragm. Osteoarthritic degenerative changes bilateral shoulders are present. IMPRESSION: 1. Small left pleural effusion is not entirely excluded. Some atelectasis could be considered. 2. Lung roberts otherwise appear clear.
[2017-07-02] MEDS: MULTIVITAMINS, THERA 1 EACH TAB PO SCH (11:13)
--- NOTE | 2017-07-02 15:20 | P.DS ---
Providers Date of admission: 06/27/17 14:17 Expected date of discharge: 07/02/17 Attending physician: Selam Michel Consults: [facility] Primary care physician: Stated None Dr. Ruby Arechiga Hospital Course: Final Diagnoses: #1 acute kidney injury secondary to prerenal azotemia #2 acute metabolic encephalopathy, improving #3 degenerative joint disease per graph #4 COPD per #5 history of CVA #6 hypothyroidism #7 dementia #8 acute conjunctivitis Hospital course:This is a 87-year-old gentleman with the recent admission to a [facility] was sent back in with change in mental status,aches in multiple joints, acute kidney injury this is attribute it to prerenal etiology. Patient was given IV fluids. Evaluated by orthopedics, treated with anti-inflammatory. Significant clinical improvement. Cleared by consult for discharge Patient is being discharged home with daughter and home care in a stable condition with guarded prognosis. The impression and plan of care has been dictated as directed as a scribe. : I performed a H&P examination of this patient and discussed the same with the dictator. I agree with the dictator's note. Any additional findings/opinions/ etc. will be noted. Patient Condition at Discharge: Stable Plan - Discharge Summary New Discharge Prescriptions: New Ciprofloxacin Ophth Soln [Ciloxan 0.3% Ophth Soln] 2 drops BOTH EYES Q4HR bottle Meloxicam [Mobic] 7.5 mg PO DAILY #10 tab Continue DULoxetine HCL [Cymbalta] 60 mg PO DAILY Montelukast [Singulair] 10 mg PO HS Ipratropium-Albuterol Nebulize [Duoneb 0.5 mg-3 mg/3 ml Soln] 3 ml INHALATION RT-QID neb Acetaminophen Tab [Tylenol] 650 mg PO Q6HR PRN tab PRN Reason: Mild Pain Or Fever > 100.5 Multivitamins, Thera [Multivitamin (formulary)] 1 tab PO DAILY@1200 Levothyroxine Sodium [Synthroid] 125 mcg PO DAILY HYDROcodone/APAP 5-325MG [[place] 5-325] 1 tab PO Q4H PRN PRN Reason: Pain Memantine [Namenda] 10 mg PO BID Menthol/Zinc Oxide [Calmoseptine Ointment] 1 applic TOPICAL BID Fluticasone/Vilanterol [Breo Ellipta 100-25 Mcg Inhaler] 1 puff INHALATION RT -DAILY Menthol [Biofreeze] 1 applic TOPICAL BID Aspirin EC [Ecotrin Low Dose] 81 mg PO DAILY Discharge Medication List DULoxetine HCL [Cymbalta] 60 mg PO DAILY 05/13/15 [History] Montelukast [Singulair] 10 mg PO HS 05/13/15 [History] Acetaminophen Tab [Tylenol] 650 mg PO Q6HR PRN tab 04/18/17 [Rx] Ipratropium-Albuterol Nebulize [Duoneb 0.5 mg-3 mg/3 ml Soln] 3 ml INHALATION RT -QID neb 04/18/17 [Rx] Aspirin EC [Ecotrin Low Dose] 81 mg PO DAILY 06/26/17 [History] Fluticasone/Vilanterol [Breo Ellipta 100-25 Mcg Inhaler] 1 puff INHALATION RT- DAILY 06/26/17 [History] HYDROcodone/APAP 5-325MG [[place] 5-325] 1 tab PO Q4H PRN 06/26/17 [History] Levothyroxine Sodium [Synthroid] 125 mcg PO DAILY 06/26/17 [History] Memantine [Namenda] 10 mg PO BID 06/26/17 [History] Menthol [Biofreeze] 1 applic TOPICAL BID 06/26/17 [History] Menthol/Zinc Oxide [Calmoseptine Ointment] 1 applic TOPICAL BID 06/26/17 [ History] Multivitamins, Thera [Multivitamin (formulary)] 1 tab PO DAILY@1200 06/26/17 [ History] Ciprofloxacin Ophth Soln [Ciloxan 0.3% Ophth Soln] 2 drops BOTH EYES Q4HR bottle 07/02/17 [Rx] Meloxicam [Mobic] 7.5 mg PO DAILY #10 tab 07/02/17 [Rx] Follow up Appointment(s)/Referral(s): Hiram Arechiga MD [REFERRING] - 3 Days Ambulatory/Diagnostic Orders: Complete Blood Count w/diff [LAB.AMB] Time Frame: 3 Days, Location: Determined By Patient Activity/Diet/Wound Care/Special Instructions: [facility] [phone] Discharge Disposition: HOME WITH HOME HEALTH SERVICES
[2017-07-02] MEDS: MONTELUKAST 10 MG TAB PO SCH (21:21)
[2017-07-03] MEDS: CIPROFLOXACIN 0.3% OPHTH SOLN 2.5 ML BTL BOTH EYES SCH ×4 (05:13→16:28)
[2017-07-03] MEDS: LEVOTHYROXINE 125 MCG TAB PO SCH (05:14)
[2017-07-03 07:40] VITALS: RESP 16
[2017-07-03] MEDS: ENOXAPARIN 40 MG/0.4 ML SYRINGE SQ SCH (08:17)
[2017-07-03] MEDS: DULoxetine HCL 60 MG CAPSULE.DR PO SCH (08:17)
[2017-07-03] MEDS: METHYL SALICYLATE/MENTHOL CREAM 5 OZ TOPICAL SCH (08:17)
[2017-07-03] MEDS: ASPIRIN 81 MG CHEW PO SCH (08:17)
[2017-07-03] MEDS: MEMANTINE 10 MG TAB PO SCH (08:17)
[2017-07-03] MEDS: MENTHOL-ZINC OXIDE OINT 113 GM TUBE TOPICAL SCH (08:18)
[2017-07-03] MEDS: IPRATROPIUM-ALBUTEROL 3 ML NEB INHALATION SCH ×3 (09:16→15:37)
[2017-07-03] MEDS: SYMBICORT 80-4.5 MCG INHALER INHALATION SCH (09:16)
[2017-07-03] MEDS: MULTIVITAMINS, THERA 1 EACH TAB PO SCH (13:11)
--- NOTE | 2017-07-03 14:12 | P.PN ---
Subjective Progress note being dictated for Dr. Michel Interval history: This is a 87-year-old gentleman with the recent admission to a [facility] was sent back in with change in mental status. The ration baseline mentation is unknown at this time. Patient was noted to have an acute kidney injury this is attribute it to prerenal etiology. Patient was given IV fluids is improved appropriately Patient has been having aches in multiple joints Orthopedics was counseled that regarding wrist ache. There is some swelling that is noted on the left side At this time patient denies having any complaints states that he is next to his house he is confused Patient's renal function appears to be appropriately improved 07/01/17 more verbal appropriately answers some questions no other overnight events reported 07/02 2017 more alert today. Chest x-ray reporting possible small left pleural effusion, atelectasis. Discharge planning in progress to home with daughter. Initially discussed ECF at discharge, given patient is a 2 person assist, bedridden with dementia, the daughter wishes to bring him home. Objective - Vital Signs Vital signs: Vital Signs Temp 98.2 F 07/03/17 07:00 Pulse 80 07/03/17 11:37 Resp 16 07/03/17 07:00 BP 145/83 07/03/17 07:00 Pulse Ox 99 07/03/17 07:00 Intake & Output 07/02/17 07/03/17 07/03/17 18:59 06:59 18:59 Intake Total 200 Balance 200 Intake: Oral 200 Other: Voiding Method Incontinent Incontinent Incontinent # Voids 2 2 # Bowel Movements 0 1 - Exam Gen. appearance alert to self Neck is supple no JVD Lungs good air movement clear to auscultation no rhonchi wheezing or crackles Abdomen is soft nontender no organomegaly Lower extremities no edema [employer] moves all 4 extremities confused - Labs CBC & Chem 7: 07/01/17 07:54 07/01/17 07:54 Labs: Microbiology - Last 24 Hours (Table) 06/27/17 17:16 Blood Culture - Preliminary Blood No Growth after 120 hours Assessment and Plan Plan: #1 acute kidney injury secondary to prerenal azotemia #2 acute metabolic encephalopathy, improving #3 degenerative joint disease per graph #4 COPD per #5 history of CVA #6 hypothyroidism #7 dementia #8 acute conjunctivitis #9 atelectasis Plan: Continue on current medication regime ,monitoring and symptomatic treatment. As mentioned above family wishing to bring patient home, declining ECF. Discussed with daughter hospice consult given patient's poor prognosis/ life expectancy. Case management to provide a daughter with a list of hospice companies. The impression and plan of care has been dictated as directed. : I performed a H&P examination of this patient and discussed the same with the dictator. I agree with the dictator's note. Any additional findings/opinions/ etc. will be noted.
[2017-07-03 15:00] VITALS: BP 113/58; TEMP 98
[2017-07-03 15:50] VITALS: PULSE 76
--- NOTE | 2017-07-06 17:18 | PN ---
DATE OF SERVICE: 06/29/17 This 87-year-old gentleman who was admitted with secondary to prerenal factors also had multiple complex medical issues also. The patient also had recent left hemiarthroplasty. Orthopedic evaluation is in progress. No chest pain. No palpitations. No fever. On exam, pulse 77. Blood pressure 155/80. Respiratory rate 18. Temperature 98 degrees. Pulse ox 97% on 2 L. HEENT: Conjunctivae normal. NECK: No JVD. CARDIOVASCULAR: S1, S2 muffled. RESPIRATORY: Breath sounds diminished at the bases. A few scattered rhonchi and crackles. Abdomen is soft. Nontender. Legs: Status post surgery. Nervous system: No focal deficits. LABS: WBC 7.2, hemoglobin 10.6. ASSESSMENT: 1. Acute dehydration possibly secondary to prerenal factors and diminished po intake. 2. Acute renal failure. 3. Acute tubular necrosis. 4. Change in mental status. 5. Acute metabolic encephalopathy. 6. Gait dysfunction. 7. Increased WBC. 8. Degenerative joint disease. 9. History of recent left hip hemiarthroplasty. 10. Chronic obstructive pulmonary disease. 11. History of cerebrovascular accident, transient ischemic attack. 12. FULL CODE. RECOMMENDATIONS AND DISCUSSION: Recommend to continue the current medications. Continue with symptomatic treatment. Otherwise, at this time, we will monitor the patient closely. Orthopedic evaluation. PT/OT evaluation. Possible ECF rehab. Guarded prognosis. Further recommendations to follow. MTDD
== END 2017-07-03 18:08 | disposition home health service (06) | DRG 682 ==
LOC: EC 16:19 → INTOOBSV 18:10 → 4MS4W 18:10 → OBSVTOIN 06-27 14:17
PROVIDERS: ADMIT Hospitalist; ATTEND Hospitalist
DX: N17.9 Acute kidney failure, unspecified (principal); G93.41 Metabolic encephalopathy; J98.11 Atelectasis; J44.9 Chronic obstructive pulmonary disease, unspecified; E86.0 Dehydration; F03.90 Unspecified dementia, unspecified severity, without behavioral disturbance, psychotic disturbance, mood disturbance, and anxiety; E03.9 Hypothyroidism, unspecified; D72.829 Elevated white blood cell count, unspecified; H10.30 Unspecified acute conjunctivitis, unspecified eye; I10 Essential (primary) hypertension; I25.2 Old myocardial infarction; M10.9 Gout, unspecified; M19.90 Unspecified osteoarthritis, unspecified site; F41.9 Anxiety disorder, unspecified; M25.531 Pain in right wrist; M25.431 Effusion, right wrist; R26.9 Unspecified abnormalities of gait and mobility; H91.90 Unspecified hearing loss, unspecified ear; R32 Unspecified urinary incontinence; Z79.899 Other long term (current) drug therapy; Z79.82 Long term (current) use of aspirin; Z87.891 Personal history of nicotine dependence; Z85.828 Personal history of other malignant neoplasm of skin; Z96.642 Presence of left artificial hip joint
CPT/HCPCS: 36415; 71010; 71020; 73521; 80048; 80053; 81001; 82550; 82553; 83605; 83735; 84100; 84484; 84550; 85025; 85610; 85730; 87040; 87086; 93005; 94640; 94760; 96360; 96361; 99285